=== PATIENT | male | born 1940 | race Caucasian/White ===

== ENCOUNTER 2017-06-21 17:20 | Inpatient (IN) | payer OTHER, MEDICARE ==
[~2017-06-21] VITALS: Ht 182.9 cm; Wt 84.6 kg
[~2017-06-21 17:20] MED LIST: ARIC5TAB PO; CARB25TA PO; CELE200 PO; EYEDRO EACH EYE; LORT5TAB PO; MEMA10 PO; SINE10100 PO
[2017-06-21] MEDS ORDERED: SODIUM CHLORIDE 0.9% FLUSH 5 ML FLUSH IV FLUSH PRN (17:45)
--- NOTE | 2017-06-21 17:47 | RADRPT ---
EXAM DATE/TIME: 06/21/2017 17:28 [facility] COMPARISON: No previous studies available for comparison. INDICATIONS : Syncope MEDICAL HISTORY : None. SURGICAL HISTORY : None. ENCOUNTER: Initial ACUITY: 1 day PAIN SCORE: 0/10 LOCATION: chest FINDINGS: Single AP view of the chest. Moderate-sized area of pulmonary parenchymal consolidation is seen in th e left mid to lower lung. No evidence of pleural effusion or pneumothorax. Cardiomediastinal silhouet te within normal limits. CONCLUSION: Moderate-sized area of left mid to lower lung consolidation. Recommend radiographic followup to brittani carlos. Masoud Rodriguez MD on June 21, 2017 at 17:43 Board Certified Radiologist. This report was verified electronically.
[2017-06-21 17:50] VITALS: O2SAT 98
--- NOTE | 2017-06-21 17:56 | PD ---
HPI Chief Complaint: altered mental status Time Seen by Provider: 17:32 Travel History International Travel<30 days: No Contact w/Intl Traveler<30days: No Traveled to known affect area: No History of Present Illness HPI 77-year-old male with history of dementia and Parkinson's disorder, presents to the ER today sent in by family because he has been more weak, disoriented, and having frequent recent falls according to family. They're having a hard time taking care of him at home. He currently denies any injuries. He denies any fevers, vomiting, or back pains. Modifying Factors: None Associated Signs & Symptoms: General weakness, disorientation, frequent falls Risk Factors: Elderly, dementia PFSH Past Medical History Parkinson's Disease: Yes Past Surgical History Appendectomy: Yes Tonsillectomy: Yes Social History Alcohol Use: Yes (SOCIAL) Tobacco Use: No Substance Use: No Allergies-Medications (Allergen,Severity, Reaction): Coded Allergies: Penicillin (Verified Allergy, Severe, Hives, 06/21/17) Reported Meds & Prescriptions Reported Meds & Active Scripts Active Reported Carbidopa-Levodopa 10-100 Mg Tab 1 Tab PO Q6HR Carbidopa-Levodopa 25-100 Mg Tab 1 Tab PO Q6HR Celecoxib 200 Mg Cap 200 Mg PO DAILY Memantine 10 Mg Tab 10 Mg PO BID Citalopram (Citalopram Hydrobromide) 20 Mg Tab 20 Mg PO DAILY Donepezil 10 Mg Tab 10 Mg PO HS Review of Systems ROS Limitations: Altered Mental Status Physical Exam Narrative GENERAL: Well-developed elderly white male patient currently in no acute distress. Awake, alert, not oriented. SKIN: Focused skin assessment warm/dry. HEAD: Atraumatic. Normocephalic. EYES: Pupils equal and round. No scleral icterus. No injection or drainage. ENT: No nasal bleeding or discharge. Mucous membranes pink and moist. NECK: Trachea midline. No JVD. CARDIOVASCULAR: Regular rate and rhythm. No murmur appreciated. RESPIRATORY: No accessory muscle use. Clear to auscultation. Breath sounds equal bilaterally. GASTROINTESTINAL: Abdomen soft, non-tender, nondistended. Hepatic and splenic margins not palpable. Pelvis: Stable and nontender to palpation. BACK: No CVA tenderness. No rash. No point tenderness on palpation of the spine. MUSCULOSKELETAL: No obvious deformities. No clubbing. No cyanosis. No edema. NEUROLOGICAL: Awake and alert. No obvious cranial nerve deficits. Motor grossly within normal limits. Normal speech. PSYCHIATRIC: Appropriate mood and affect; insight and judgment normal. Data Data Last Documented VS Vital Signs Date Time Temp Pulse Resp B/P Pulse Ox O2 Delivery O2 Flow Rate FiO2 06/21/17 18:16 98.6 78 19 150/95 98 06/21/17 17:50 Room Air Orders Electrocardiogram (06/21/17 17:32) Ammonia (06/21/17 17:32) Complete Blood Count With Diff (06/21/17 17:32) Comprehensive Metabolic Panel (06/21/17 17:32) Prothrombin Time / Inr (Pt) (06/21/17:32) Act Partial Throm Time (Ptt) (06/21/17 17:32) Troponin I (06/21/17 17:32) Thyroid Stimulating Hormone (06/21/17 17:32) Urinalysis - C+S If Indicated (06/21/17 17:32) Lactic Acid Sepsis Protocol (06/21/17 17:32) Blood Culture (06/21/17 17:32) Chest, Single Ap (06/21/17 17:32) Ct Brain W/O Iv Contrast(Rout) (06/21/17 17:32) Blood Glucose (06/21/17 17:32) Ecg Monitoring (06/21/17 17:32) Iv Access Insert/Monitor (06/21/17 17:32) Cath For Specimen (06/21/17 17:32) Oximetry (06/21/17 17:32) Sodium Chloride 0.9% Flush (Ns Flush) (06/21/17 17:45) Ceftriaxone Inj (Rocephin Inj) (06/21/17 18:47) Azithromycin Inj (Zithromax Inj) (06/21/17 18:47) Urine Culture (06/21/17 18:40) Labs Laboratory Tests Test 06/21/17 06/21/17 17:50 18:40 White Blood Count 9.6 TH/MM3 Red Blood Count 5.05 MIL/MM3 Hemoglobin 15.3 GM/DL Hematocrit 45.5 % Mean Corpuscular Volume 90.0 FL Mean Corpuscular Hemoglobin 30.2 PG Mean Corpuscular Hemoglobin 33.5 % Concent Red Cell Distribution Width 13.9 % Platelet Count 146 TH/MM3 Mean Platelet Volume 8.2 FL Neutrophils (%) (Auto) 77.5 % Lymphocytes (%) (Auto) 11.0 % Monocytes (%) (Auto) 10.1 % Eosinophils (%) (Auto) 0.8 % Basophils (%) (Auto) 0.6 % Neutrophils # (Auto) 7.4 TH/MM3 Lymphocytes # (Auto) 1.1 TH/MM3 Monocytes # (Auto) 1.0 TH/MM3 Eosinophils # (Auto) 0.1 TH/MM3 Basophils # (Auto) 0.1 TH/MM3 CBC Comment DIFF FINAL Differential Comment Prothrombin Time 11.3 SEC Prothromb Time International 1.0 RATIO Ratio Activated Partial 33.4 SEC Thromboplast Time Sodium Level 138 MEQ/L Chloride Level 84 MEQ/L Carbon Dioxide Level 18.0 MEQ/L Anion Gap 36 MEQ/L Blood Urea Nitrogen 15 MG/DL Creatinine 0.75 MG/DL Estimat Glomerular Filtration 101 ML/MIN Rate Random Glucose 97 MG/DL Lactic Acid Level 1.7 mmol/L Aspartate Amino Transf 16 U/L (AST/SGOT) Ammonia LESS THAN 10 MCMOL/L Albumin 3.1 GM/DL Urine Color DARK-BROWN Urine Turbidity CLOUDY Urine pH 6.0 Urine Specific [place] 1.031 Urine Protein 100 mg/dL Urine Glucose (UA) NEG mg/dL Urine Ketones 40 mg/dL Urine Occult Blood MOD Urine Nitrite NEG Urine Bilirubin NEG Urine Urobilinogen 2.0 MG/DL Urine Leukocyte Esterase TRACE Urine RBC /hpf Urine WBC 18 /hpf Urine Amorphous Sediment RARE Urine Bacteria OCC /hpf Urine Mucus MANY /lpf Microscopic Urinalysis Comment CATH-CULTURE IND MDM Medical Decision Making Medical Screen Exam Complete: Yes Emergency Medical Condition: Yes Medical Record Reviewed: Yes Interpretation(s) EKG shows normal sinus rhythm at a rate of 77 bpm with no signs of acute ST-T elevations or depressions. Last [address] 06/21/171731 Signed Impressions: Service Date/Time: Wednesday, June 21, 2017 18:11 - CONCLUSION: No acute intracranial findings. Masoud Rodriguez MD Chest X-Ray 06/21/171731 Signed Impressions: Service Date/Time: Wednesday, June 21, 2017 17:28 - CONCLUSION: Moderate- sized area of left mid to lower lung consolidation. Recommend radiographic followup to resolution. Masoud Rodriguez MD Differential Diagnosis Altered mental status, weakness, fallsacute intracranial injuries versus worsening dementia versus metabolic issues versus dehydration versus sepsis Narrative Course CAT scan of the brain did not show any signs of acute processes. Chest x-ray does show left-sided consolidation questionable for underlying pneumonia. IV antibiotics were initiated in the ER. Lab work also shows significant UTI. At this point, case was discussed with Dr. Garland for admission. Diagnosis Primary Impression: Altered mental status Additional Impression: Pneumonia Admitting Information Admitting Physician Requests: Admit Josiah Corbin MD Jun 21, 2017 17:56
[2017-06-21 18:16] VITALS: BP 150/95; PULSE 78; RESP 19; TEMP 98.6; O2SAT 98
[2017-06-21 18:44] LABS: AUTOMATED NEUTROPHIL # 7.4 TH/MM3 (1.8-7.7); BASOPHIL # 0.1 TH/MM3 (0-0.2); BASOPHIL % 0.6 % (0.0-2.0); EOSINOPHIL # 0.1 TH/MM3 (0-0.4); EOSINOPHIL % 0.8 % (0.0-4.0); HEMATOCRIT 45.5 % (39.0-51.0); HEMO FLAGS DIFF FINAL; LYMPHOCYTE # 1.1 TH/MM3 (1.0-4.8); MEAN CORPUSCULAR HEMOGLOBIN 30.2 PG (27.0-34.0); MEAN CORPUSCULAR HGB CONC 33.5 % (32.0-36.0); MONO % 10.1 % (0.0-8.0); NEUT % 77.5 % (16.0-70.0); PLATELET COUNT 146 TH/MM3 (150-450); RED BLOOD COUNT 5.05 MIL/MM3 (4.50-5.90); RED CELL DISTRIBUTION WIDTH 13.9 % (11.6-17.2); WHITE BLOOD COUNT 9.6 TH/MM3 (4.0-11.0)
--- NOTE | 2017-06-21 18:46 | RADRPT ---
EXAM DATE/TIME: 06/21/2017 18:11 [facility] COMPARISON: No previous studies available for comparison. INDICATIONS : Altered mental status. RADIATION DOSE: 34.54 CTDIvol (mGy) MEDICAL HISTORY : Parkinson's. SURGICAL HISTORY : None. ENCOUNTER: Initial ACUITY: 1 day PAIN SCALE: Non-responsive LOCATION: cranial TECHNIQUE: Multiple contiguous axial images were obtained of the head. Using automated exposure control and adj ustment of the mA and/or kV according to patient size, radiation dose was kept as low as reasonably a chievable to obtain optimal diagnostic quality images. DICOM format image data is available electro nically for review and comparison. FINDINGS: CEREBRUM: Mild symmetric bilateral frontal lobe atrophy. The ventricles are normal for age. No evidence of mid line shift, mass lesion, hemorrhage or acute infarction. No extra-axial fluid collections are seen. POSTERIOR FOSSA: The cerebellum and brainstem are intact. The 4th ventricle is midline. The cerebellopontine angle i s unremarkable. EXTRACRANIAL: The visualized portion of the orbits is intact. SKULL: The calvaria is intact. No evidence of skull fracture. CONCLUSION: No acute intracranial findings. Masoud Rodriguez MD on June 21, 2017 at 18:43 Board Certified Radiologist. This report was verified electronically.
[2017-06-21] MEDS ORDERED: cefTRIAXone INJ 2,000 MG in SODIUM CHLORIDE 0.9% INJ 100 ML IV STA (18:47)
[2017-06-21] MEDS ORDERED: AZITHROMYCIN INJ 500 MG in SODIUM CHLOR 0.9% 250 ML INJ 250 ML IV STA (18:47)
[2017-06-21] MEDS ORDERED: MEMA1TAB2 PO (18:50)
[2017-06-21] MEDS ORDERED: CARB25TA9 PO (18:50)
[2017-06-21] MEDS ORDERED: CARB10TA2 PO (18:50)
[2017-06-21] MEDS ORDERED: CELE1CAP8 PO (18:50)
[2017-06-21] MEDS ORDERED: CITA20TA4 PO (18:50)
[2017-06-21] MEDS ORDERED: DONE10TA7 PO (18:50)
[2017-06-21 18:59] LABS: APTT (PATIENT) 33.4 SEC (24.3-30.1); PROTHROMBIN TIME - PATIENT 11.3 SEC (9.8-11.6)
[2017-06-21 19:14] LABS: AST (GOT) 16 U/L (15-37); BLOOD UREA NITROGEN 15 MG/DL (7-18); GLOMERULAR FILTRATION RATE 101 ML/MIN (>89); SODIUM (NA) 138 MEQ/L (136-145)
[2017-06-21 19:27] LABS: BACTERIA, URINE OCC /hpf; BLOOD, URINE MOD (NEG); GLUCOSE,URINE NEG (NEG); KETONE, URINE 40 mg/dL (NEG); MUCUS URINE MANY /lpf (OCC); NITRITE,URINE NEG (NEG)
[2017-06-21 19:30] LABS: URINE COLOR DARK-BROWN (YELLW/STRAW)
[2017-06-21 19:31] LABS: COMMENT (UR) CATH-CULTURE IND; CULTURE IF INDICATED CATH CULTURE IND
--- NOTE | 2017-06-21 19:41 | HHI.HP ---
[facility] Camryn Sheppard MD Admission Diagnosis sepsis/pneumonia/UTI/altered mental status Diagnoses: (1) Encephalopathy Diagnosis: Principal (2) UTI (urinary tract infection) Diagnosis: Principal (3) PNA (pneumonia) Diagnosis: Principal (4) Recurrent falls Diagnosis: Principal (5) Dementia Diagnosis: Principal (6) Thrombocytopenia Diagnosis: Principal (7) HTN (hypertension) Diagnosis: Principal Travel History International Travel<30 Days: No Contact w/Intl Traveler <30 Da: No Traveled to Known Affected Are: No History of Present Illness This is a 77-year-old male with a PMH of Parkinson's Dementia was brought to the ER by family secondary to recurrent falls and worsening confusion x1-2 wks. Lives at home w/ who is unable to care for patient in his current condition. No reported fever, chills, nausea/vomiting or diarrhea. On arrival , BP 150/95, HR 78, O2 sat 98% on RA, Afebrile. CBC unremarkable except for platelets 146, previously 181 on 10/24/08. Chemistry essentially unremarkable. Lactic Acid normal. Troponin negative. Ammonia negative. INR 1.0. UA positive for UTI. CXR with moderate sized area of left mid to lower lung consolidation. CT Head with no acute findings. S/p Blood/Urine Culture in ER, Rocephin/Zithro. Review of Systems Except as stated in HPI: all other systems reviewed are Neg ROS: 14 point review of systems otherwise negative. Past Family Social History Past Medical History PMH: Parkinson's Dementia Past Surgical History PAST SURGICAL HISTORY: Appendectomy, Tonsillectomy Allergies: Coded Allergies: Penicillin (Verified Allergy, Severe, Hives, 06/21/17) Family History PAST FAMILY HISTORY: Reviewed. No h/o DM or CAD Social History PAST SOCIAL HISTORY: Occasional alcohol. Negative for tobacco or drugs. Physical Exam Vital Signs Vital Signs Date Time Temp Pulse Resp B/P Pulse Ox O2 Delivery O2 Flow Rate FiO2 06/21/17 18:16 98.6 78 19 150/95 98 06/21/17 17:50 98 Room Air Physical Exam PE: GENERAL: Elderly white male in no acute distress. HEENT: PERRLA, EOMI. No scleral icterus or conjunctival pallor. No lid lag or facial droop. CARDIOVASCULAR: Regular rate and rhythm. No obvious murmurs to auscultation. No chest tenderness to palpation. RESPIRATORY: No obvious rhonchi or wheezing. Clear to auscultation. Breath sounds equal bilaterally. GASTROINTESTINAL: Abdomen soft, non-tender, nondistended. BS normal. MUSCULOSKELETAL: Extremities without clubbing, cyanosis, or edema. No obvious deformities. NEUROLOGICAL: Awake, alert, confused. No focal neurologic deficits. Moving both upper and lower extremities spontaneously. Laboratory Laboratory Tests Test 06/21/17 06/21/17 17:50 18:40 White Blood Count 9.6 Red Blood Count 5.05 Hemoglobin 15.3 Hematocrit 45.5 Mean Corpuscular Volume 90.0 Mean Corpuscular Hemoglobin 30.2 Mean Corpuscular Hemoglobin 33.5 Concent Red Cell Distribution Width 13.9 Platelet Count 146 Mean Platelet Volume 8.2 Neutrophils (%) (Auto) 77.5 Lymphocytes (%) (Auto) 11.0 Monocytes (%) (Auto) 10.1 Eosinophils (%) (Auto) 0.8 Basophils (%) (Auto) 0.6 Neutrophils # (Auto) 7.4 Lymphocytes # (Auto) 1.1 Monocytes # (Auto) 1.0 Eosinophils # (Auto) 0.1 Basophils # (Auto) 0.1 CBC Comment DIFF FINAL Differential Comment Prothrombin Time 11.3 Prothromb Time International 1.0 Ratio Activated Partial 33.4 Thromboplast Time Sodium Level 138 Chloride Level 84 Carbon Dioxide Level 18.0 Anion Gap 36 Blood Urea Nitrogen 15 Creatinine 0.75 Estimat Glomerular Filtration 101 Rate Random Glucose 97 Lactic Acid Level 1.7 Aspartate Amino Transf 16 (AST/SGOT) Ammonia LESS THAN 10 Albumin 3.1 Urine Color DARK-BROWN Urine Turbidity CLOUDY Urine pH 6.0 Urine Specific [place] 1.031 Urine Protein 100 Urine Glucose (UA) NEG Urine Ketones 40 Urine Occult Blood MOD Urine Nitrite NEG Urine Bilirubin NEG Urine Urobilinogen 2.0 Urine Leukocyte Esterase TRACE Urine RBC Urine WBC 18 Urine Amorphous Sediment RARE Urine Bacteria OCC Urine Mucus MANY Microscopic Urinalysis Comment CATH-CULTURE IND Date/Time Procedure Status Source Growth 06/21/17 18:40 Urine Culture Received Urine Catheterized Urine Pending 06/21/17 17:55 Aerobic Blood Culture Received Blood Peripheral Pending 06/21/17 17:55 Anaerobic Blood Culture Received Blood Peripheral Pending Result Diagram: 06/21/17174906/21/171749 Assessment and Plan Problem List: (1) Encephalopathy ICD Code: G93.40 Status: Acute (2) UTI (urinary tract infection) ICD Code: N39.0 Status: Acute (3) PNA (pneumonia) ICD Code: J18.9 Status: Acute (4) Recurrent falls ICD Code: R29.6 Status: Acute (5) Dementia ICD Code: F03.90 Status: Acute (6) Thrombocytopenia ICD Code: D69.6 Status: Acute (7) HTN (hypertension) ICD Code: I10 Status: Acute Assessment and Plan A/P: 1. Encephalopathy: likely secondary to underlying Dementia compounded by acute UTI/PNA. Family reports worsening confusion. CT Head w/ no acute findings, images reviewed by me. 2. UTI: U/a w/ trace LE, hematuria, bacteriuria. S/p Rocephin/Zithro in ER for PNA, will continue w/ IV abx, IVF for hydration. 3. PNA: CXR w/ left mid and left lower lung infiltrate. Afebrile, WBC normal. S/p Rocephin/Zithro, Blood Cultures in ER. Will follow cultures, continue IV Abx, DuoNeb prn if needed. 4. Recurrent Falls: Likely multifactorial-Dementia, Physical Deconditioning and acute infection. PT for eval/tx. 5. Dementia: Resume home Sinemet and Aricept. 6. Thrombocytopenia: Platelets 146, previously 181 on 10/24/08, no active bleeding, will monitor, repeat labs in am. 7. DVT Prophylaxis: SCD/Teds. 8. Social work for d/c planning as needed. 9. Case discussed w/ ER physician at length. Physician Certification 2 Midnight Certification Type: Admission for Inpatient Services Order for Inpatient Services The services are ordered in accordance with Medicare regulations or non- Medicare payer requirements, as applicable. In the case of services not specified as inpatient-only, they are appropriately provided as inpatient services in accordance with the 2-midnight benchmark. Estimated LOS (days): 2 days is the estimated time the patient will need to remain in the hospital, assuming treatment plan goals are met and no additional complications. Post-Hospital Plan: Not yet determined Yisel Garland MD Jun 21, 2017 19:41
[2017-06-21] MEDS ORDERED: RESP: ALBUTEROL 2.5 MG/IPRATROPIUM 0.5 MG NEB (PRN) NEB (19:45)
[2017-06-21] MEDS ORDERED: ACETAMINOPHEN 325 MG TAB PO PRN (19:45)
[2017-06-21] MEDS ORDERED: LACTULOSE SYRUP 20 GM/30 ML CUP PO PRN (19:45)
[2017-06-21] MEDS ORDERED: MAGNESIUM HYDROXIDE SUSP 30 ML CUP PO PRN (19:45)
[2017-06-21] MEDS ORDERED: SENNOSIDES 8.6 MG TAB PO PRN (19:45)
[2017-06-21] MEDS ORDERED: SODIUM CHLORIDE 0.9% FLUSH 10 ML FLUSH IV FLUSH PRN (19:45)
[2017-06-21] MEDS ORDERED: BISACODYL 10 MG SUPP RECTAL PRN (19:45)
[2017-06-21] MEDS ORDERED: ONDANSETRON HCL 4 MG/2 ML VIAL IVP PRN (19:45)
[2017-06-21 19:47] LABS: ALKALINE PHOSPHATASE 67 U/L (45-117); ALT (GPT) LESS THAN 6 U/L (12-78)
[2017-06-21 19:48] LABS: TOTAL BILIRUBIN ADULT 2.1 MG/DL (0.2-1.0)
[2017-06-21 19:50] LABS: CHLORIDE 102 MEQ/L (98-107)
[2017-06-21 19:51] LABS: ANION GAP 12 MEQ/L (5-15); BICARBONATE 24.5 MEQ/L (21.0-32.0)
[2017-06-21] MEDS: SODIUM CHLOR 0.9% 1000 ML INJ 1,000 ML IV SCH (20:20)
[2017-06-21 20:23] VITALS: BP 148/88; PULSE 88; RESP 16; TEMP 98.8; O2SAT 99
[2017-06-21 21:00] VITALS: BP 147/62; PULSE 80; RESP 20; TEMP 97; O2SAT 97
[2017-06-21] MEDS: BUDESONIDE-FORMOTEROL 160/4.5 MCG INHALER INH SCH (21:00)
[2017-06-21] MEDS: SODIUM CHLORIDE 0.9% FLUSH 10 ML FLUSH IV FLUSH SCH (21:00)
[2017-06-21] MEDS: guaiFENesin E.R. 600 MG TAB PO SCH (22:03)
[2017-06-21] MEDS: DONEPEZIL HCL 5 MG TAB PO SCH (22:03)
[2017-06-21] MEDS: DOCUSATE SODIUM 50 MG/SENNA 8.6 MG TAB PO SCH (22:03)
[2017-06-21] MEDS: MEMANTINE HCL 10 MG TAB PO SCH (22:03)
[2017-06-21] MEDS ORDERED: LORazepam 2 MG/ML VIAL IV PUSH ONE ×2 (23:45)
[2017-06-22] VITALS (9 sets, daily range): BP systolic 130–154; BP diastolic 65–98; PULSE 67–101; RESP 17–23; TEMP 97.4–98.6; O2SAT 93–98
[2017-06-22] MEDS: CARBIDOPA/LEVODOPA 25 MG/100 MG TAB PO SCH ×4 (00:10→17:16)
[2017-06-22] MEDS: CARBIDOPA/LEVODOPA 10 MG/100 MG TAB PO SCH ×4 (00:10→17:16)
[2017-06-22] MEDS: SODIUM CHLOR 0.9% 1000 ML INJ 1,000 ML IV SCH ×2 (06:18→16:28)
[2017-06-22] MEDS: BUDESONIDE-FORMOTEROL 160/4.5 MCG INHALER INH SCH ×2 (09:00→20:47)
[2017-06-22] MEDS: SODIUM CHLORIDE 0.9% FLUSH 10 ML FLUSH IV FLUSH SCH ×2 (09:00→20:46)
[2017-06-22] MEDS: guaiFENesin E.R. 600 MG TAB PO SCH ×2 (09:19→20:46)
[2017-06-22] MEDS: CITALOPRAM HYDROBROMIDE 20 MG TAB PO SCH (09:19)
[2017-06-22] MEDS: DOCUSATE SODIUM 50 MG/SENNA 8.6 MG TAB PO SCH ×2 (09:19→20:46)
[2017-06-22] MEDS: MEMANTINE HCL 10 MG TAB PO SCH ×2 (09:19→20:46)
--- NOTE | 2017-06-22 09:32 | HHI.PR ---
Subjective Remarks in no acute distress. however confused and at times agitated. no fever. d/w the RN. Objective Vitals Vital Signs Date Time Temp Pulse Resp B/P Pulse Ox O2 Delivery O2 Flow Rate FiO2 06/22/17 04:30 97.7 69 22 139/67 95 06/22/17 02:49 82 06/22/17 01:30 98.0 71 23 135/65 94 06/22/17 01:30 98.0 71 23 135/65 94 06/21/17 21:00 97.0 80 20 147/62 97 06/21/17 20:23 98.8 88 16 148/88 99 Room Air 06/21/17 18:16 98.6 78 19 150/95 98 06/21/17 17:50 98 Room Air I/O 06/21/17 06/21/17 06/21/17 06/22/17 06/22/17 06/22/17 07:00 15:00 23:00 07:00 15:00 23:00 Intake Total 0 ml 0 ml 1200 ml Output Total 100 ml 100 ml Balance -100 ml -100 ml 1200 ml Intake Oral 0 ml 0 ml IV Total 1200 ml Output Urine Total 100 ml 100 ml # Voids 1 # Bowel Movements 0 0 Result Diagram: 06/21/17 1750 06/21/171749 Imaging Last Impressions Head CT 06/21/171731 Signed Impressions: Service Date/Time: Wednesday, June 21, 2017 18:11 - CONCLUSION: No acute intracranial findings. Masoud Rodriguez MD Chest X-Ray 06/21/171731 Signed Impressions: Service Date/Time: Wednesday, June 21, 2017 17:28 - CONCLUSION: Moderate- sized area of left mid to lower lung consolidation. Recommend radiographic followup to resolution. Masoud Rodriguez MD Objective Remarks GENERAL: elderly male in no distress- however confused. CARDIOVASCULAR: Regular rate and regular rhythm without murmurs, gallops, or rubs. RESPIRATORY: Clear to auscultation. Breath sounds equal bilaterally. No wheezes , rales, or rhonchi. GASTROINTESTINAL: Abdomen soft, non-tender, nondistended. Normal, active bowel sounds MUSCULOSKELETAL: Extremities without clubbing, cyanosis, or edema. NEURO: awake but not oriented to time or place. A/P Assessment and Plan A/P 1. Encephalopathy: likely secondary to underlying Dementia compounded by acute UTI/PNA. Family reports worsening confusion. CT Head w/ no acute findings- 2. UTI: U/a w/ trace LE, hematuria, bacteriuria. will continue w/ IV abx, IVF for hydration. 3. PNA: CXR w/ left mid and left lower lung infiltrate. Afebrile, WBC normal. Will follow cultures, continue IV Abx, DuoNeb prn if needed. will repeat CXR in one-two days. 4. Recurrent Falls: Likely multifactorial-Dementia, Physical Deconditioning and acute infection. PT for eval/tx. 5. Dementia: Resumed home Sinemet and Aricept. 6. Thrombocytopenia: no active bleeding, will monitor. 7. DVT Prophylaxis: SCD/Teds. Tashia Lara MD Jun 22, 2017 09:32
[2017-06-22] MEDS ORDERED: HALOPERIDOL LACTATE 5 MG/ML AMP IM PRN (09:45)
--- NOTE | 2017-06-22 16:46 | EKG ---
Date Performed: 06/21/2017 Time Performed: 18:06:30 PTAGE: 77 years EKG: Sinus rhythm MODERATE INTRAVENTRICULAR CONDUCTION DELAY NONSPECIFIC ST & T-WAVE ABNORMALITY ABNORMAL ECG PREVIOUS TRACING : 06/15/2002 11.53 Since previous tracing, no significant change noted DOCTOR: Renate Blevins Interpretating Date/Time 06/22/2017 16:44:15
[2017-06-22] MEDS: DONEPEZIL HCL 5 MG TAB PO SCH (20:46)
[2017-06-22] MEDS: QUEtiapine FUMARATE 25 MG TAB PO SCH (20:46)
[2017-06-22] MEDS: cefTRIAXone INJ 1,000 MG in SODIUM CHLORIDE 0.9% INJ 100 ML IV SCH (20:47)
[2017-06-22] MEDS: AZITHROMYCIN INJ 500 MG in SODIUM CHLOR 0.9% 250 ML INJ 250 ML IV SCH (21:45)
[2017-06-23] VITALS: BP 145/81; PULSE 110; RESP 22; TEMP 97.9; O2SAT 94
[2017-06-23] MEDS: CARBIDOPA/LEVODOPA 25 MG/100 MG TAB PO SCH ×5 (00:21→23:43)
[2017-06-23] MEDS: CARBIDOPA/LEVODOPA 10 MG/100 MG TAB PO SCH ×5 (00:21→23:43)
[2017-06-23] MEDS: SODIUM CHLOR 0.9% 1000 ML INJ 1,000 ML IV SCH ×3 (01:40→22:00)
[2017-06-23 05:45] VITALS: BP 150/76; PULSE 115; RESP 23; TEMP 98.9; O2SAT 93
[2017-06-23 08:17] VITALS: BP 101/62; PULSE 75; RESP 18; TEMP 97.6; O2SAT 95
[2017-06-23] MEDS: SODIUM CHLORIDE 0.9% FLUSH 10 ML FLUSH IV FLUSH SCH ×2 (09:00→21:00)
[2017-06-23] MEDS: guaiFENesin E.R. 600 MG TAB PO SCH ×2 (09:27→21:18)
[2017-06-23] MEDS: CITALOPRAM HYDROBROMIDE 20 MG TAB PO SCH (09:27)
[2017-06-23] MEDS: MEMANTINE HCL 10 MG TAB PO SCH ×2 (09:28→21:18)
[2017-06-23] MEDS: DOCUSATE SODIUM 50 MG/SENNA 8.6 MG TAB PO SCH ×2 (09:28→21:18)
[2017-06-23] MEDS: BUDESONIDE-FORMOTEROL 160/4.5 MCG INHALER INH SCH ×2 (09:28→21:00)
--- NOTE | 2017-06-23 10:16 | HHI.PR ---
Subjective Remarks in no acute distress. has occasional cough. no fever. awake but confused. Objective Vitals Vital Signs Date Time Temp Pulse Resp B/P Pulse Ox O2 Delivery O2 Flow Rate FiO2 06/23/17 08:17 97.6 75 18 101/62 95 06/23/17 05:45 98.9 115 23 150/76 93 06/23/17 00:00 97.9 110 22 145/81 94 06/22/17 21:55 75 06/22/17 21:00 97.7 101 21 140/70 94 06/22/17 16:00 97.9 82 17 154/72 93 06/22/17 13:46 67 06/22/17 12:00 98.6 76 17 130/70 98 I/O 06/22/17 06/22/17 06/22/17 06/23/17 06/23/17 06/23/17 07:00 15:00 23:00 07:00 15:00 23:00 Intake Total 0 ml 1560 ml 0 ml 1200 ml Output Total 100 ml Balance -100 ml 1560 ml 0 ml 1200 ml Intake Oral 0 ml 360 ml 0 ml 0 ml IV Total 1200 ml 1200 ml Output Urine Total 100 ml # Voids 1 3 1 2 # Bowel Movements 0 1 0 2 Result Diagram: 06/21/17 1750 06/21/17 175 Imaging Last Impressions Head CT 06/21/171731 Signed Impressions: Service Date/Time: Wednesday, June 21, 2017 18:11 - CONCLUSION: No acute intracranial findings. Masoud Rodriguez MD Chest X-Ray 06/21/171731 Signed Impressions: Service Date/Time: Wednesday, June 21, 2017 17:28 - CONCLUSION: Moderate- sized area of left mid to lower lung consolidation. Recommend radiographic followup to resolution. Masoud Rodriguez MD Objective Remarks GENERAL: elderly male in no distress- however confused. CARDIOVASCULAR: Regular rate and regular rhythm without murmurs, gallops, or rubs. RESPIRATORY: Clear to auscultation. Breath sounds equal bilaterally. No wheezes , rales, or rhonchi. GASTROINTESTINAL: Abdomen soft, non-tender, nondistended. Normal, active bowel sounds MUSCULOSKELETAL: Extremities without clubbing, cyanosis, or edema. NEURO: awake but not oriented to time or place. Medications and IVs Current Medications IV Flush 2 ml 2 ml UNSCH PRN IV FLUSH FLUSH AFTER USING IV ACCESS; Start at 17:45 Ceftriaxone Sodium 2000 mg/ Sodium Chloride 100 ml @ 200 mls/hr ONCE STAT IV Last administered on 06/21/17 19:14; Start 06/21/17 at 18:47; Stop 06/21/17 at 19:16; Status DC Azithromycin 500 mg/Sodium Chloride 250 ml @ 250 mls/hr ONCE STAT IV Last administered on 06/21/17 20:20; Start 06/21/17 at 18:47; Stop 06/21/17 at 19:50 ; Status DC Ceftriaxone Sodium 1000 mg/ Sodium Chloride 100 ml @ 200 mls/hr Q24H IV Last administered on 06/22/17 20:47; Start 06/22/17 at 20:00 Azithromycin/ Sodium Chloride (Zithromax Inj/ NS 250 ml Inj) 250 ml @ 250 mls/ hr Q24H IV Last administered on 06/22/17 21:45; Start 06/22/17 at 21:00 Albuterol/ Ipratropium (Duoneb Neb) 1 ampule Q4HR NEB PRN NEB SOB/WHEEZING; Start 06/21/17 at 19:45 Budesonide/ Formoterol Fumarate (Symbicort 160-4.5 Inh) 2 puff Q12HR INH Last administered on 06/23/17 09:28; Start 06/21/17 at 21:00 Guaifenesin 600 mg 600 mg BID PO Last administered on 06/23/17 09:27; Start at 21:00 Sodium Chloride (NS 1000 ml Inj) 1,000 ml @ 100 mls/hr Q10H IV Last administered on 06/23/17 01:40; Start 06/21/17 at 20:00 Sodium Chloride (NS Flush) 2 ml UNSCH PRN IV FLUSH FLUSH AFTER USING IV ACCESS ; Start 06/21/17 at 19:45; Status UNV Sodium Chloride (NS Flush) 2 ml BID IV FLUSH ; Start 06/21/17 at 21:00 Ondansetron HCl (Zofran Inj) 4 mg Q6H PRN IVP NAUSEA OR VOMITING; Start at 19:45 Acetaminophen (Tylenol) 650 mg Q6H PRN PO FEVER/PAIN SCALE 1 TO 2; Start at 19:45 Senna/Docusate Sodium (Cindy-Colace) 1 tab BID PO Last administered on 09:28; Start 06/21/17 at 21:00 Magnesium Hydroxide (Milk Of Magnesia Liq) 30 ml Q12H PRN PO MILD - MODERATE CONSTIPATION; Start 06/21/17 at 19:45 Sennosides (Senokot) 17.2 mg Q12H PRN PO MODERATE - SEVERE CONSTIPATION; Start 06/21/17 at 19:45 Bisacodyl (Dulcolax Supp) 10 mg DAILY PRN RECTAL SEVERE CONSITIPATION; Start at 19:45 Lactulose (Lactulose Liq) 30 ml DAILY PRN PO SEVERE CONSITIPATION; Start at 19:45 Carbidopa/Levodopa (Sinemet 10-100 Mg) 1 tab Q6HR PO Last administered on 05:22; Start 06/22/17 at 00:00 Carbidopa/Levodopa (Sinemet 25-100 Mg) 1 tab Q6HR PO Last administered on 05:22; Start 06/22/17 at 00:00 Donepezil HCl (Aricept) 10 mg HS PO Last administered on 06/22/17 20:46; Start 06/21/17 at 22:00 Memantine (Namenda) 10 mg BID PO Last administered on 06/23/17 09:28; Start at 21:00 Citalopram Hydrobromide (CeleXA) 20 mg DAILY PO Last administered on 06/23/17 09:27; Start 06/22/17 at 09:00 Lorazepam (Ativan Inj) 1 mg ONCE ONCE IV PUSH ; Start 06/21/17 at 23:45; Stop 06/21/17 at 23:45; Status DC Lorazepam (Ativan Inj) 0.5 mg ONCE ONCE IV PUSH Last administered on 00:10; Start 06/21/17 at 23:45; Stop 06/21/17 at 23:46; Status DC Haloperidol Lactate (Haldol Inj) 2 mg Q6H PRN IM AGITATION AND/OR HALLUCINATION ; Start 06/22/17 at 09:45; Stop 06/22/17 at 12:12; Status DC Quetiapine Fumarate (SEROquel) 25 mg HS PO Last administered on 06/22/17t 20:46 ; Start 06/22/17 at 21:00 A/P Assessment and Plan A/P 1. Encephalopathy: likely secondary to underlying Dementia compounded by acute UTI/PNA. Family reports worsening confusion. CT Head w/ no acute findings- 2. possible UTI: U/a w/ trace LE, hematuria, bacteriuria. will continue w/ IV abx, IVF for hydration. 3. PNA: CXR w/ left mid and left lower lung infiltrate. Afebrile, WBC normal. Will follow cultures, continue IV Abx, DuoNeb prn if needed. repeat CXR tomorrow. 4. Recurrent Falls: Likely multifactorial-Dementia, Physical Deconditioning and acute infection. PT for eval/tx. 5. Dementia: Resumed home Sinemet and Aricept. added Seroquel. 6. Thrombocytopenia: no active bleeding, will monitor. 7. DVT Prophylaxis: SCD/Teds. Discharge Planning previously d/w the and PT recommendations noted; case management for SNF. Tashia Lara MD Jun 23, 2017 10:16
[2017-06-23 12:04] VITALS: BP 129/55; PULSE 78; RESP 20; TEMP 97.9; O2SAT 96
[2017-06-23 12:41] LABS: BASOPHIL % 0.5 % (0.0-2.0); EOSINOPHIL # 0.1 TH/MM3 (0-0.4); EOSINOPHIL % 1.3 % (0.0-4.0); HEMO FLAGS DIFF FINAL; LYMPH % 12.3 % (9.0-44.0); LYMPHOCYTE # 0.9 TH/MM3 (1.0-4.8); MEAN CELL VOLUME 87.7 FL (80.0-100.0); MEAN CORPUSCULAR HEMOGLOBIN 29.8 PG (27.0-34.0); MONO % 14.6 % (0.0-8.0); NEUT % 71.3 % (16.0-70.0); PLATELET COUNT 125 TH/MM3 (150-450); RED BLOOD COUNT 4.68 MIL/MM3 (4.50-5.90); RED CELL DISTRIBUTION WIDTH 13.4 % (11.6-17.2); WHITE BLOOD COUNT 7.1 TH/MM3 (4.0-11.0)
[2017-06-23 12:52] LABS: ANION GAP 9 MEQ/L (5-15); AST (GOT) 23 U/L (15-37); BICARBONATE 22.7 MEQ/L (21.0-32.0); CHLORIDE 106 MEQ/L (98-107); GLOMERULAR FILTRATION RATE 147 ML/MIN (>89); POTASSIUM 4.1 MEQ/L (3.5-5.1); SODIUM (NA) 138 MEQ/L (136-145)
[2017-06-23 12:53] LABS: ALT (GPT) 6 U/L (12-78)
[2017-06-23 12:54] LABS: BLOOD UREA NITROGEN 12 MG/DL (7-18)
[2017-06-23 12:55] LABS: ALKALINE PHOSPHATASE 60 U/L (45-117); TOTAL BILIRUBIN ADULT 1.2 MG/DL (0.2-1.0)
[2017-06-23 15:54] VITALS: BP 122/55; PULSE 74; RESP 20; TEMP 98.1; O2SAT 96
[2017-06-23 20:00] VITALS: BP 138/65; PULSE 77; RESP 18; TEMP 97.8; O2SAT 95
[2017-06-23] MEDS: QUEtiapine FUMARATE 25 MG TAB PO SCH (21:18)
[2017-06-23] MEDS: DONEPEZIL HCL 5 MG TAB PO SCH (21:18)
[2017-06-23] MEDS: cefTRIAXone INJ 1,000 MG in SODIUM CHLORIDE 0.9% INJ 100 ML IV SCH (21:18)
[2017-06-23] MEDS: AZITHROMYCIN INJ 500 MG in SODIUM CHLOR 0.9% 250 ML INJ 250 ML IV SCH (22:31)
[2017-06-24] VITALS: BP 115/51; PULSE 77; RESP 18; TEMP 98.2; O2SAT 96
[2017-06-24 05:00] VITALS: BP 145/82; PULSE 73; RESP 18; TEMP 98.2; O2SAT 94
[2017-06-24] MEDS: CARBIDOPA/LEVODOPA 10 MG/100 MG TAB PO SCH ×3 (05:19→17:27)
[2017-06-24] MEDS: CARBIDOPA/LEVODOPA 25 MG/100 MG TAB PO SCH ×3 (05:19→17:27)
--- NOTE | 2017-06-24 07:03 | RADRPT ---
EXAM DATE/TIME: 06/24/2017 06:06 [facility] COMPARISON: CHEST SINGLE AP, June 21, 2017, 17:28. INDICATIONS : Pneumonia. MEDICAL HISTORY : Parkinson's disease. SURGICAL HISTORY : None. ENCOUNTER: Subsequent ACUITY: 3 days PAIN SCORE: Non-responsive. LOCATION: Bilateral chest FINDINGS: A single view of the chest demonstrates bilateral infiltrates left greater than right. The cardiomed iastinal contours are unremarkable. Osseous structures are intact. CONCLUSION: Worsening airspace disease throughout the left lower lobe. Venancio Morataya MD on June 24, 2017 at 7:01 Board Certified Radiologist. This report was verified electronically.
[2017-06-24] MEDS: SODIUM CHLOR 0.9% 1000 ML INJ 1,000 ML IV SCH (08:00)
[2017-06-24] MEDS: SODIUM CHLORIDE 0.9% FLUSH 10 ML FLUSH IV FLUSH SCH ×2 (08:04→21:50)
[2017-06-24] MEDS: DOCUSATE SODIUM 50 MG/SENNA 8.6 MG TAB PO SCH ×2 (08:04→21:48)
[2017-06-24] MEDS: BUDESONIDE-FORMOTEROL 160/4.5 MCG INHALER INH SCH (08:05)
[2017-06-24] MEDS: MEMANTINE HCL 10 MG TAB PO SCH ×2 (08:05→21:48)
[2017-06-24] MEDS: guaiFENesin E.R. 600 MG TAB PO SCH ×2 (08:05→21:48)
[2017-06-24] MEDS: CITALOPRAM HYDROBROMIDE 20 MG TAB PO SCH (08:07)
[2017-06-24 08:09] VITALS: BP 156/65; PULSE 75; RESP 20; TEMP 98.8; O2SAT 95
[2017-06-24 10:29] LABS: BASOPHIL # 0.1 TH/MM3 (0-0.2); BASOPHIL % 1.3 % (0.0-2.0); EOSINOPHIL # 0.2 TH/MM3 (0-0.4); EOSINOPHIL % 1.5 % (0.0-4.0); LYMPH % 12.3 % (9.0-44.0); LYMPHOCYTE # 1.4 TH/MM3 (1.0-4.8); MEAN CORPUSCULAR HEMOGLOBIN 29.8 PG (27.0-34.0); MEAN CORPUSCULAR HGB CONC 34.2 % (32.0-36.0); MONO % 15.6 % (0.0-8.0); NEUT % 69.3 % (16.0-70.0); PLATELET COUNT 150 TH/MM3 (150-450); RED BLOOD COUNT 4.72 MIL/MM3 (4.50-5.90); RED CELL DISTRIBUTION WIDTH 13.4 % (11.6-17.2); WHITE BLOOD COUNT 11.6 TH/MM3 (4.0-11.0)
[2017-06-24 10:57] LABS: HEMO FLAGS AUTO DIFF; PLATELET ESTIMATE SMEAR NORMAL (NORMAL); PLATELET MORPHOLOGY NORMAL (NORMAL)
[2017-06-24 10:58] LABS: SCAN/DIFF AUTO DIFF CONFIRMED
--- NOTE | 2017-06-24 11:34 | HHI.PR ---
Subjective Remarks f/u; pneumonia- not as responsive. no fever. CXR today noted. d/w the RN. Objective Vitals Vital Signs Date Time Temp Pulse Resp B/P Pulse Ox O2 Delivery O2 Flow Rate FiO2 06/24/17 08:09 98.8 75 20 156/65 95 06/24/17 05:00 98.2 73 18 145/82 94 06/24/17 00:00 98.2 77 18 115/51 96 06/23/17 20:00 97.8 77 18 138/65 95 06/23/17 15:54 98.1 74 20 122/55 96 06/23/17 12:04 97.9 78 20 129/55 96 I/O 06/23/17 06/23/17 06/23/17 06/24/17 06/24/17 06/24/17 07:00 15:00 23:00 07:00 15:00 23:00 Intake Total 1200 ml 600 ml 830 ml Balance 1200 ml 600 ml 830 ml Intake Oral 0 ml 600 ml 180 ml IV Total 1200 ml 650 ml # Voids 2 2 4 # Bowel Movements 2 3 2 Result Diagram: 06/24/17 0900 06/23/17 1122 Imaging Last Impressions Chest X-Ray 06/24/17 0600 Signed Impressions: Service Date/Time: Saturday, June 24, 2017 06:06 - CONCLUSION: Worsening airspace disease throughout the left lower lobe. Venancio Morataya MD Head CT 06/21/17 1732 Signed Impressions: Service Date/Time: Wednesday, June 21, 2017 18:11 - CONCLUSION: No acute intracranial findings. Masoud Rodriguez MD Objective Remarks GENERAL: elderly male in no distress- however confused. CARDIOVASCULAR: Regular rate and regular rhythm without murmurs, gallops, or rubs. RESPIRATORY: Clear to auscultation. Breath sounds equal bilaterally. No wheezes , rales, or rhonchi. GASTROINTESTINAL: Abdomen soft, non-tender, nondistended. Normal, active bowel sounds MUSCULOSKELETAL: Extremities without clubbing, cyanosis, or edema. NEURO: awake but not oriented to time or place. Medications and IVs Current Medications IV Flush 2 ml 2 ml UNSCH PRN IV FLUSH FLUSH AFTER USING IV ACCESS; Start at 17:45 Ceftriaxone Sodium 2000 mg/ Sodium Chloride 100 ml @ 200 mls/hr ONCE STAT IV Last administered on 06/21/17 19:14; Start 06/21/17 at 18:47; Stop 06/21/17 at 19:16; Status DC Azithromycin 500 mg/Sodium Chloride 250 ml @ 250 mls/hr ONCE STAT IV Last administered on 06/21/17 20:20; Start 06/21/17 at 18:47; Stop 06/21/17 at 19:50 ; Status DC Ceftriaxone Sodium 1000 mg/ Sodium Chloride 100 ml @ 200 mls/hr Q24H IV Last administered on 06/23/17 21:18; Start 06/22/17 at 20:00 Azithromycin/ Sodium Chloride (Zithromax Inj/ NS 250 ml Inj) 250 ml @ 250 mls/ hr Q24H IV Last administered on 06/23/17 22:31; Start 06/22/17 at 21:00 Albuterol/ Ipratropium (Duoneb Neb) 1 ampule Q4HR NEB PRN NEB SOB/WHEEZING; Start 06/21/17 at 19:45 Budesonide/ Formoterol Fumarate (Symbicort 160-4.5 Inh) 2 puff Q12HR INH Last administered on 06/24/17 08:05; Start 06/21/17 at 21:00 Guaifenesin 600 mg 600 mg BID PO Last administered on 06/24/17 08:05; Start at 21:00 Sodium Chloride (NS 1000 ml Inj) 1,000 ml @ 100 mls/hr Q10H IV Last administered on 06/23/17 22:00; Start 06/21/17 at 20:00 Sodium Chloride (NS Flush) 2 ml UNSCH PRN IV FLUSH FLUSH AFTER USING IV ACCESS ; Start 06/21/17 at 19:45; Status UNV Sodium Chloride (NS Flush) 2 ml BID IV FLUSH Last administered on 06/23/17 21: 00; Start 06/21/17 at 21:00 Ondansetron HCl (Zofran Inj) 4 mg Q6H PRN IVP NAUSEA OR VOMITING; Start at 19:45 Acetaminophen (Tylenol) 650 mg Q6H PRN PO FEVER/PAIN SCALE 1 TO 2; Start at 19:45 Senna/Docusate Sodium (Cindy-Colace) 1 tab BID PO Last administered on 08:04; Start 06/21/17 at 21:00 Magnesium Hydroxide (Milk Of Magnesia Liq) 30 ml Q12H PRN PO MILD - MODERATE CONSTIPATION; Start 06/21/17 at 19:45 Sennosides (Senokot) 17.2 mg Q12H PRN PO MODERATE - SEVERE CONSTIPATION; Start 06/21/17 at 19:45 Bisacodyl (Dulcolax Supp) 10 mg DAILY PRN RECTAL SEVERE CONSITIPATION; Start at 19:45 Lactulose (Lactulose Liq) 30 ml DAILY PRN PO SEVERE CONSITIPATION; Start at 19:45 Carbidopa/Levodopa (Sinemet 10-100 Mg) 1 tab Q6HR PO Last administered on 05:19; Start 06/22/17 at 00:00 Carbidopa/Levodopa (Sinemet 25-100 Mg) 1 tab Q6HR PO Last administered on 05:19; Start 06/22/17 at 00:00 Donepezil HCl (Aricept) 10 mg HS PO Last administered on 06/23/17 21:18; Start 06/21/17 at 22:00 Memantine (Namenda) 10 mg BID PO Last administered on 06/24/17 08:05; Start at 21:00 Citalopram Hydrobromide (CeleXA) 20 mg DAILY PO Last administered on 06/24/17 08:07; Start 06/22/17 at 09:00 Lorazepam (Ativan Inj) 1 mg ONCE ONCE IV PUSH ; Start 06/21/17 at 23:45; Stop 06/21/17 at 23:45; Status DC Lorazepam (Ativan Inj) 0.5 mg ONCE ONCE IV PUSH Last administered on 00:10; Start 06/21/17 at 23:45; Stop 06/21/17 at 23:46; Status DC Haloperidol Lactate (Haldol Inj) 2 mg Q6H PRN IM AGITATION AND/OR HALLUCINATION ; Start 06/22/17 at 09:45; Stop 06/22/17 at 12:12; Status DC Quetiapine Fumarate (SEROquel) 25 mg HS PO Last administered on 06/23/17t 21:18 ; Start 06/22/17 at 21:00 A/P Assessment and Plan A/P 1. Encephalopathy: likely secondary to underlying Dementia compounded by acute UTI/PNA. Family reports worsening confusion. CT Head w/ no acute findings- 2. possible UTI: U/a w/ trace LE, hematuria, bacteriuria. will continue w/ IV abx, IVF for hydration. 3. PNA: CXR w/ left mid and left lower lung infiltrate. Afebrile, WBC normal. Will follow cultures, continue IV Abx, DuoNeb prn if needed. CXR today with worsening infiltrate.will check CT chest and consult pulmonary. consult speech. 4. Recurrent Falls: Likely multifactorial-Dementia, Physical Deconditioning and acute infection. PT for eval/tx. 5. Dementia: Resumed home Sinemet and Aricept. added Seroquel. 6. Thrombocytopenia: no active bleeding, will monitor. 7. DVT Prophylaxis: SCD/Teds. DNR status per my previous discussion with the family. d/w the and . Discharge Planning previously d/w the and PT recommendations noted; case management for SNF. Tashia Lara MD Jun 24, 2017 11:34
[2017-06-24 12:08] VITALS: BP 145/66; PULSE 64; RESP 20; TEMP 98.5; O2SAT 95
[2017-06-24 15:54] VITALS: BP 144/66; PULSE 71; RESP 20; TEMP 97.9; O2SAT 94
--- NOTE | 2017-06-24 15:59 | RADRPT ---
EXAM DATE/TIME: 06/24/2017 15:26 [facility] COMPARISON: CHEST SINGLE AP, June 24, 2017, 6:06. INDICATIONS : Pneumonia. RADIATION DOSE: 7.87 CTDIvol (mGy) MEDICAL HISTORY : Carcinoma, prostate. Dementia. Hypertension. SURGICAL HISTORY : Appendectomy. ENCOUNTER: Initial ACUITY: 1 day PAIN SCALE: 0/10 LOCATION: chest TECHNIQUE: Volumetric scanning of the chest was performed. Using automated exposure control and adjustment of t he mA and/or kV according to patient size, radiation dose was kept as low as reasonably achievable to obtain optimal diagnostic quality images. DICOM format image data is available electronically for r eview and comparison. Follow-up recommendations for detected pulmonary nodules are based at a minimum on nodule size and pa tient risk factors according to Fleischner Society Guidelines. FINDINGS: LUNGS: Bilateral pulmonary infiltrates are observed. The largest involves the left upper lobe there is invol vement of both upper lobes and lower lobes. Several small air bronchograms noted. No appreciable bron chiectasis. PLEURAE: Tiny bilateral pleural effusions. The left is larger than the right. MEDIASTINUM: The heart is normal in size. Significant coronary artery atherosclerotic calcifications are noted. Ao rta and pulmonary arteries are normal in caliber. No bulky adenopathy appreciated on this unenhanced study. AXILLAE: Within normal limits. No lymphadenopathy. MUSCULOSKELETAL: Within normal limits for patient age. MISCELLANEOUS: Bilateral renal calculi observed. The largest stone measures 6 mm. And 11.5 cm cyst is seen involving the upper pole of the right kidney. CONCLUSION: 1. Bilateral pulmonary infiltrates most pronounced within the left upper lobe. Most consistent with a n infectious etiology. 2. Coronary artery atherosclerotic calcifications. 3. Tiny bilateral pleural effusions. 4. Bilateral renal calculi. Lloyd Chaudhary Jr., MD on June 24, 2017 at 15:49 Board Certified Radiologist. This report was verified electronically.
[2017-06-24] MEDS: metroNIDAZOLE 500 MG INJ 100 ML IV SCH (17:29)
[2017-06-24] MEDS: RESP: ALBUTEROL 2.5 MG/IPRATROPIUM 0.5 MG NEB (SCH) NEB (19:43)
--- NOTE | 2017-06-24 19:49 | MB ---
cc: Adolph MAHMOOD DATE OF CONSULTATION 06/24/2017 HISTORY OF THE PRESENT ILLNESS Mr. Tiwari is a 77-year-old white male who presented with pneumonia. He was admitted on June 21 and a chest x-ray today reveals increasing left basilar infiltrate. The patient has chronic of Parkinson's disease, tries to answer questions but has difficulty, has some dementia associated with this but as best I can tell that is about 8-10 years that he has had the disease. He seems rather rigid and immobile lying in bed but comfortable. Most of this information is taken from the chart. He denies being uncomfortable or short of breath. Apparently no history of recurrent pneumonias. His O2 saturations on room air are 94-96%. He has been afebrile. White count has actually been normal since admission, currently 11.6 today. Blood cultures have been negative as has urine culture. He has been on Rocephin and Zithromax. Apparently no significant prior pulmonary history. He is not a smoker. Family has been caring for him at home but apparently he has been getting more and more difficult due to the confusion and frequent falls. PAST MEDICAL HISTORY Only past history otherwise is hypertension. MEDICATIONS Reviewed and recorded in the EMR. SOCIAL HISTORY Really not recorded other than what I have noted above. Apparently family has been in to visit him and have been supportive and caring for him. REVIEW OF SYSTEMS The review of systems is really unobtainable. PHYSICAL EXAMINATION GENERAL: Very awake, alert, cooperative, tries to answer questions but a little confused about details. No distress. VITAL SIGNS: Afebrile, 140/60, pulse 70, respirations 18, sat 95%. HEENT: Sclerae are little pale but anicteric. NECK: The neck veins are not distended. LYMPHATICS: No adenopathy in the neck or supraclavicular region. CHEST: Reveals minimal congestion, bilateral without wheezes. Regular rhythm. No audible S3. No harsh murmur. ABDOMEN: Soft, nontender. EXTREMITIES: No peripheral edema or calf tenderness and no cyanosis or clubbing. IMAGING Chest x-ray today reveals a left lower lobe infiltrate. CT scan done earlier today predominantly left midlung infiltrate, although there is also some infiltrate on the right, very tiny bilateral effusions. DISCUSSION Mr. Tiwari presents with pneumonia. Chest x-ray looks a little worse today. The patient is somewhat immobile. We will try to mobilize him into the chair with physical therapy support as mobilization will certainly help in his recovery. I am also going to add Flagyl. I suspect this is an aspiration pneumonia. We will continue his Rocephin but increase it to twice a day and continue the Zithromax. Also put him on a short course of IV steroids as this can help from an anti-inflammatory standpoint and also put him on regular nebulizer treatments t.i.d. until his chest clears a bit. We will going to suction a sputum to see if we can analyze this with culture. Further diagnostic and/or therapeutic intervention will depend on his ongoing clinical course. R. Dangelo Mahmood MD RSW/KK /5:00 PM /7:37 PM
[2017-06-24 20:29] VITALS: BP 145/65; PULSE 85; RESP 18; TEMP 98.4; O2SAT 97
[2017-06-24] MEDS: DONEPEZIL HCL 5 MG TAB PO SCH (21:48)
[2017-06-24] MEDS: QUEtiapine FUMARATE 25 MG TAB PO SCH (21:48)
[2017-06-24] MEDS: methylPREDNISolone SOD SUCC 40 MG/1 ML VIAL IV PUSH SCH (21:48)
[2017-06-24] MEDS: cefTRIAXone INJ 1,000 MG in SODIUM CHLORIDE 0.9% INJ 100 ML IV SCH (21:49)
[2017-06-24] MEDS: AZITHROMYCIN INJ 500 MG in SODIUM CHLOR 0.9% 250 ML INJ 250 ML IV SCH (21:50)
--- NOTE | 2017-06-24 22:58 | HHI.PR ---
Addendum to Inpatient Note Addendum Reason: Additional Documentation Additional Information Appreciate call from Dr. Burt Chand Pts now ill with pneumonia symptoms and will be unable to come visit patient for a few days. 2 of his children are flying into town on . Discussed with today and she notes his quality of life was decreased prior to this illness, however he is rarely sick (his issue has been parkinsons with dementia not illnesses) and was still mostly independent in the house other than needing meds prepared for him. She agreed with DNR status. continue to try to treat illness short of intubation. Camryn Thibodeaux MD Jun 24, 2017 22:57
[2017-06-25] VITALS (8 sets, daily range): BP systolic 104–137; BP diastolic 52–70; PULSE 72–99; RESP 18–20; TEMP 96.2–99; O2SAT 92–97
[2017-06-25] MEDS: CARBIDOPA/LEVODOPA 25 MG/100 MG TAB PO SCH ×4 (00:09→17:03)
[2017-06-25] MEDS: CARBIDOPA/LEVODOPA 10 MG/100 MG TAB PO SCH ×4 (00:09→17:03)
[2017-06-25] MEDS: metroNIDAZOLE 500 MG INJ 100 ML IV SCH ×3 (02:16→17:03)
[2017-06-25] MEDS: RESP: ALBUTEROL 2.5 MG/IPRATROPIUM 0.5 MG NEB (SCH) NEB ×3 (08:05→19:52)
[2017-06-25] MEDS: MEMANTINE HCL 10 MG TAB PO SCH ×2 (09:31→22:00)
[2017-06-25] MEDS: cefTRIAXone INJ 1,000 MG in SODIUM CHLORIDE 0.9% INJ 100 ML IV SCH ×2 (09:31→22:01)
[2017-06-25] MEDS: guaiFENesin E.R. 600 MG TAB PO SCH ×2 (09:31→22:00)
[2017-06-25] MEDS: CITALOPRAM HYDROBROMIDE 20 MG TAB PO SCH (09:31)
[2017-06-25] MEDS: methylPREDNISolone SOD SUCC 40 MG/1 ML VIAL IV PUSH SCH ×2 (09:32→22:00)
[2017-06-25] MEDS: DOCUSATE SODIUM 50 MG/SENNA 8.6 MG TAB PO SCH ×2 (09:32→22:00)
[2017-06-25] MEDS: SODIUM CHLORIDE 0.9% FLUSH 10 ML FLUSH IV FLUSH SCH ×2 (09:32→21:00)
--- NOTE | 2017-06-25 11:13 | HHI.PR ---
Subjective Remarks looks more alert today. in no acute distress and remains afebrile. family at the bedside. Objective Vitals Vital Signs Date Time Temp Pulse Resp B/P Pulse Ox O2 Delivery O2 Flow Rate FiO2 06/25/17 08:35 97.9 81 18 111/55 94 06/25/17 08:07 97 21 06/25/17 04:35 96.2 72 20 137/70 95 06/25/17 00:15 97.9 83 20 131/60 96 06/24/17 20:29 98.4 85 18 145/65 97 06/24/17 15:54 97.9 71 20 144/66 94 06/24/17 12:08 98.5 64 20 145/66 95 I/O 06/24/17 06/24/17 06/24/17 06/25/17 06/25/17 06/25/17 07:00 15:00 23:00 07:00 15:00 23:00 Intake Total 830 ml 540 ml 450 ml Balance 830 ml 540 ml 450 ml Intake Oral 180 ml 120 ml IV Total 650 ml 420 ml 450 ml # Voids 4 2 1 1 1 # Bowel Movements 2 2 1 1 Result Diagram: 06/24/17 0900 06/23/17 1122 Imaging Last Impressions Chest X-Ray 06/24/17 0600 Signed Impressions: Service Date/Time: Saturday, June 24, 2017 06:06 - CONCLUSION: Worsening airspace disease throughout the left lower lobe. Venancio Morataya MD Chest CT 06/24/17 0000 Signed Impressions: Service Date/Time: Saturday, June 24, 2017 15:26 - CONCLUSION: 1. Bilateral pulmonary infiltrates most pronounced within the left upper lobe. Most consistent with an infectious etiology. 2. Coronary artery atherosclerotic calcifications. 3. Tiny bilateral pleural effusions. 4. Bilateral renal calculi. Lloyd Chaudhary Jr., MD Head CT 06/21/17 1732 Signed Impressions: Service Date/Time: Wednesday, June 21, 2017 18:11 - CONCLUSION: No acute intracranial findings. Masoud Rodriguez MD Objective Remarks GENERAL: elderly male in no distress- however confused. CARDIOVASCULAR: Regular rate and regular rhythm without murmurs, gallops, or rubs. RESPIRATORY: Clear to auscultation. Breath sounds equal bilaterally. No wheezes , rales, or rhonchi. GASTROINTESTINAL: Abdomen soft, non-tender, nondistended. Normal, active bowel sounds MUSCULOSKELETAL: Extremities without clubbing, cyanosis, or edema. NEURO: awake and seems more alert today; oriented to person and partly to place. Medications and IVs Current Medications IV Flush 2 ml 2 ml UNSCH PRN IV FLUSH FLUSH AFTER USING IV ACCESS; Start at 17:45 Ceftriaxone Sodium 2000 mg/ Sodium Chloride 100 ml @ 200 mls/hr ONCE STAT IV Last administered on 06/21/17 19:14; Start 06/21/17 at 18:47; Stop 06/21/17 at 19:16; Status DC Azithromycin 500 mg/Sodium Chloride 250 ml @ 250 mls/hr ONCE STAT IV Last administered on 06/21/17 20:20; Start 06/21/17 at 18:47; Stop 06/21/17 at 19:50 ; Status DC Ceftriaxone Sodium 1000 mg/ Sodium Chloride 100 ml @ 200 mls/hr Q24H IV Last administered on 06/23/17 21:18; Start 06/22/17 at 20:00; Stop 06/24/17 at 16:59 ; Status DC Azithromycin/ Sodium Chloride (Zithromax Inj/ NS 250 ml Inj) 250 ml @ 250 mls/ hr Q24H IV Last administered on 06/24/17 21:50; Start 06/22/17 at 21:00 Albuterol/ Ipratropium (Duoneb Neb) 1 ampule Q4HR NEB PRN NEB SOB/WHEEZING; Start 06/21/17 at 19:45 Budesonide/ Formoterol Fumarate (Symbicort 160-4.5 Inh) 2 puff Q12HR INH Last administered on 06/24/17 08:05; Start 06/21/17 at 21:00; Stop 06/24/17 at 16:59 ; Status DC Guaifenesin 600 mg 600 mg BID PO Last administered on 06/25/17 09:31; Start at 21:00 Sodium Chloride (NS 1000 ml Inj) 1,000 ml @ 100 mls/hr Q10H IV Last administered on 06/23/17 22:00; Start 06/21/17 at 20:00; Status Hold Sodium Chloride (NS Flush) 2 ml UNSCH PRN IV FLUSH FLUSH AFTER USING IV ACCESS ; Start 06/21/17 at 19:45; Status UNV Sodium Chloride (NS Flush) 2 ml BID IV FLUSH Last administered on 06/25/17 09: 32; Start 06/21/17 at 21:00 Ondansetron HCl (Zofran Inj) 4 mg Q6H PRN IVP NAUSEA OR VOMITING; Start at 19:45 Acetaminophen (Tylenol) 650 mg Q6H PRN PO FEVER/PAIN SCALE 1 TO 2; Start at 19:45 Senna/Docusate Sodium (Cindy-Colace) 1 tab BID PO Last administered on 09:32; Start 06/21/17 at 21:00 Magnesium Hydroxide (Milk Of Magnesia Liq) 30 ml Q12H PRN PO MILD - MODERATE CONSTIPATION; Start 06/21/17 at 19:45 Sennosides (Senokot) 17.2 mg Q12H PRN PO MODERATE - SEVERE CONSTIPATION; Start 06/21/17 at 19:45 Bisacodyl (Dulcolax Supp) 10 mg DAILY PRN RECTAL SEVERE CONSITIPATION; Start at 19:45 Lactulose (Lactulose Liq) 30 ml DAILY PRN PO SEVERE CONSITIPATION; Start at 19:45 Carbidopa/Levodopa (Sinemet 10-100 Mg) 1 tab Q6HR PO Last administered on 05:32; Start 06/22/17 at 00:00 Carbidopa/Levodopa (Sinemet 25-100 Mg) 1 tab Q6HR PO Last administered on 05:33; Start 06/22/17 at 00:00 Donepezil HCl (Aricept) 10 mg HS PO Last administered on 06/24/17 21:48; Start 06/21/17 at 22:00 Memantine (Namenda) 10 mg BID PO Last administered on 06/25/17 09:31; Start at 21:00 Citalopram Hydrobromide (CeleXA) 20 mg DAILY PO Last administered on 06/25/17 09:31; Start 06/22/17 at 09:00 Lorazepam (Ativan Inj) 1 mg ONCE ONCE IV PUSH ; Start 06/21/17 at 23:45; Stop 06/21/17 at 23:45; Status DC Lorazepam (Ativan Inj) 0.5 mg ONCE ONCE IV PUSH Last administered on 00:10; Start 06/21/17 at 23:45; Stop 06/21/17 at 23:46; Status DC Haloperidol Lactate (Haldol Inj) 2 mg Q6H PRN IM AGITATION AND/OR HALLUCINATION ; Start 06/22/17 at 09:45; Stop 06/22/17 at 12:12; Status DC Quetiapine Fumarate 25 mg 25 mg HS PO Last administered on 06/24/17 21:48; Start 06/22/17 at 21:00 Ceftriaxone Sodium 1000 mg/ Sodium Chloride 100 ml @ 200 mls/hr BID IV Last administered on 06/25/17 09:31; Start 06/24/17 at 21:00 Metronidazole (Flagyl 500 Mg Inj) 100 ml @ 100 mls/hr Q8H IV Last administered on 06/25/17 09:30; Start 06/24/17 at 18:00 Albuterol/ Ipratropium (Duoneb Neb) 1 ampule TID NEB NEB Last administered on 06/25/17 08:05; Start 06/24/17 at 20:00 Methylprednisolone Sodium Succinate (SoluMEDROL INJ) 20 mg Q12HR IV PUSH Last administered on 06/25/17 09:32; Start 06/24/17 at 21:00; Stop 06/28/17 at 07:00 A/P Assessment and Plan A/P 1. Encephalopathy: likely secondary to underlying Dementia compounded by acute PNA. CT Head w/ no acute findings- continue antibiotics and will monitor. 2 PNA: CXR w/ left mid and left lower lung infiltrate. continue with antibiotics and neb treatment- pulmonary consult appreciated; steroid was added. ST consulted. 3. Recurrent Falls: Likely multifactorial-Dementia, Physical Deconditioning and acute infection. PT for eval/tx. 4. Dementia: Resumed home Sinemet and Aricept. added Seroquel. 5. Thrombocytopenia: no active bleeding, will monitor. 6. DVT Prophylaxis: SCD/Teds. DNR status per my previous discussion with the family. Discharge Planning previously d/w the and PT recommendations noted; case management for SNF. Tashia Lara MD Jun 25, 2017 11:13
[2017-06-25] MEDS: DONEPEZIL HCL 5 MG TAB PO SCH (21:59)
[2017-06-25] MEDS: QUEtiapine FUMARATE 25 MG TAB PO SCH (22:00)
[2017-06-25] MEDS: AZITHROMYCIN INJ 500 MG in SODIUM CHLOR 0.9% 250 ML INJ 250 ML IV SCH (22:01)
[2017-06-26] VITALS (7 sets, daily range): BP systolic 100–166; BP diastolic 56–70; PULSE 76–121; RESP 18–20; TEMP 97.5–98.6; O2SAT 94–98
[2017-06-26] MEDS: CARBIDOPA/LEVODOPA 25 MG/100 MG TAB PO SCH ×5 (03:12→23:34)
[2017-06-26] MEDS: CARBIDOPA/LEVODOPA 10 MG/100 MG TAB PO SCH ×5 (03:12→23:34)
[2017-06-26] MEDS: metroNIDAZOLE 500 MG INJ 100 ML IV SCH ×3 (03:13→18:38)
[2017-06-26] MEDS: RESP: ALBUTEROL 2.5 MG/IPRATROPIUM 0.5 MG NEB (SCH) NEB ×3 (08:15→20:09)
[2017-06-26] MEDS: methylPREDNISolone SOD SUCC 40 MG/1 ML VIAL IV PUSH SCH ×2 (09:00→20:03)
[2017-06-26] MEDS: cefTRIAXone INJ 1,000 MG in SODIUM CHLORIDE 0.9% INJ 100 ML IV SCH ×2 (09:00→20:03)
[2017-06-26] MEDS: SODIUM CHLORIDE 0.9% FLUSH 10 ML FLUSH IV FLUSH SCH ×2 (09:00→20:04)
[2017-06-26] MEDS: DOCUSATE SODIUM 50 MG/SENNA 8.6 MG TAB PO SCH ×2 (09:00→20:04)
[2017-06-26] MEDS: MEMANTINE HCL 10 MG TAB PO SCH ×2 (09:00→20:02)
[2017-06-26] MEDS: guaiFENesin E.R. 600 MG TAB PO SCH ×2 (09:00→20:03)
[2017-06-26] MEDS: CITALOPRAM HYDROBROMIDE 20 MG TAB PO SCH (09:00)
--- NOTE | 2017-06-26 09:07 | HHI.PR ---
Addendum to Inpatient Note Addendum Reason: Additional Documentation Additional Information HI! Courtesy visit to see patient. HE seems comfortable and not in distress today. His speech is more scattered and more difficult to understand today than baseline prior to hospitalization, however family who is in the room states he is tremendously better than a few days ago. He ate a few bites of yogert, eggs and a piece of garrett, OJ and water this AM so far. He is stiffer in his movements than usual, some trouble following commands (again worse than his baseline). Looking at his sinemet dosing it looks like he is scheduled Q6 hours and had meds given at 3am today? May want to check with his regarding the times he normally takes the sinemet because I thought she told me they take it 8am, 12 noon, 2 pm and 4pm and then his namenda and aricept about 8pm (maybe adjusting his sinemet to his usual routine will make him less stiff?) . Camryn Thibodeaux MD Jun 26, 2017 09:07
--- NOTE | 2017-06-26 10:30 | HHI.PR ---
Subjective Remarks f/u; pneumonia in no acute distress. looks more alert today. no fever. 's note was reviewed. d/w the RN. Objective Vitals Vital Signs Date Time Temp Pulse Resp B/P Pulse Ox O2 Delivery O2 Flow Rate FiO2 06/26/17 08:15 96 06/26/17 08:00 97.7 76 18 140/64 95 06/26/17 00:00 97.5 93 20 166/70 97 06/25/17 20:49 99.0 99 18 104/52 92 06/25/17 19:54 92 21 06/25/17 16:11 97.8 83 18 129/60 93 06/25/17 12:31 97.3 77 18 116/55 94 I/O 06/25/17 06/25/17 06/25/17 06/26/17 06/26/17 06/26/17 07:00 15:00 23:00 07:00 15:00 23:00 Intake Total 450 ml 330 ml Balance 450 ml 330 ml Intake Oral 330 ml IV Total 450 ml # Voids 1 2 3 # Bowel Movements 1 1 Result Diagram: 06/24/17 0900 06/23/17 1122 Imaging Last Impressions Chest X-Ray 06/24/17 0600 Signed Impressions: Service Date/Time: Saturday, June 24, 2017 06:06 - CONCLUSION: Worsening airspace disease throughout the left lower lobe. Venancio Morataya MD Chest CT 06/24/17 0000 Signed Impressions: Service Date/Time: Saturday, June 24, 2017 15:26 - CONCLUSION: 1. Bilateral pulmonary infiltrates most pronounced within the left upper lobe. Most consistent with an infectious etiology. 2. Coronary artery atherosclerotic calcifications. 3. Tiny bilateral pleural effusions. 4. Bilateral renal calculi. Lloyd Chaudhary Jr., MD Head CT 06/21/17 1732 Signed Impressions: Service Date/Time: Wednesday, June 21, 2017 18:11 - CONCLUSION: No acute intracranial findings. Masoud Rodriguez MD Objective Remarks GENERAL: elderly male in no distress- CARDIOVASCULAR: Regular rate and regular rhythm without murmurs, gallops, or rubs. RESPIRATORY: Clear to auscultation. Breath sounds equal bilaterally. No wheezes , rales, or rhonchi. GASTROINTESTINAL: Abdomen soft, non-tender, nondistended. Normal, active bowel sounds MUSCULOSKELETAL: Extremities without clubbing, cyanosis, or edema. NEURO: awake and seems more alert today; oriented to person and partly to place. Medications and IVs Current Medications IV Flush 2 ml 2 ml UNSCH PRN IV FLUSH FLUSH AFTER USING IV ACCESS; Start at 17:45 Ceftriaxone Sodium 2000 mg/ Sodium Chloride 100 ml @ 200 mls/hr ONCE STAT IV Last administered on 06/21/17 19:14; Start 06/21/17 at 18:47; Stop 06/21/17 at 19:16; Status DC Azithromycin 500 mg/Sodium Chloride 250 ml @ 250 mls/hr ONCE STAT IV Last administered on 06/21/17 20:20; Start 06/21/17 at 18:47; Stop 06/21/17 at 19:50 ; Status DC Ceftriaxone Sodium 1000 mg/ Sodium Chloride 100 ml @ 200 mls/hr Q24H IV Last administered on 06/23/17 21:18; Start 06/22/17 at 20:00; Stop 06/24/17 at 16:59 ; Status DC Azithromycin/ Sodium Chloride (Zithromax Inj/ NS 250 ml Inj) 250 ml @ 250 mls/ hr Q24H IV Last administered on 06/25/17 22:01; Start 06/22/17 at 21:00 Albuterol/ Ipratropium (Duoneb Neb) 1 ampule Q4HR NEB PRN NEB SOB/WHEEZING; Start 06/21/17 at 19:45 Budesonide/ Formoterol Fumarate (Symbicort 160-4.5 Inh) 2 puff Q12HR INH Last administered on 06/24/17 08:05; Start 06/21/17 at 21:00; Stop 06/24/17 at 16:59 ; Status DC Guaifenesin 600 mg 600 mg BID PO Last administered on 06/25/17 22:00; Start at 21:00 Sodium Chloride (NS 1000 ml Inj) 1,000 ml @ 100 mls/hr Q10H IV Last administered on 06/23/17 22:00; Start 06/21/17 at 20:00; Status Hold Sodium Chloride (NS Flush) 2 ml UNSCH PRN IV FLUSH FLUSH AFTER USING IV ACCESS ; Start 06/21/17 at 19:45; Status UNV Sodium Chloride (NS Flush) 2 ml BID IV FLUSH Last administered on 06/25/17 21: 00; Start 06/21/17 at 21:00 Ondansetron HCl (Zofran Inj) 4 mg Q6H PRN IVP NAUSEA OR VOMITING; Start at 19:45 Acetaminophen (Tylenol) 650 mg Q6H PRN PO FEVER/PAIN SCALE 1 TO 2; Start at 19:45 Senna/Docusate Sodium (Cindy-Colace) 1 tab BID PO Last administered on 22:00; Start 06/21/17 at 21:00 Magnesium Hydroxide (Milk Of Magnesia Liq) 30 ml Q12H PRN PO MILD - MODERATE CONSTIPATION; Start 06/21/17 at 19:45 Sennosides (Senokot) 17.2 mg Q12H PRN PO MODERATE - SEVERE CONSTIPATION; Start 06/21/17 at 19:45 Bisacodyl (Dulcolax Supp) 10 mg DAILY PRN RECTAL SEVERE CONSITIPATION; Start at 19:45 Lactulose (Lactulose Liq) 30 ml DAILY PRN PO SEVERE CONSITIPATION; Start at 19:45 Carbidopa/Levodopa (Sinemet 10-100 Mg) 1 tab Q6HR PO Last administered on 06:30; Start 06/22/17 at 00:00 Carbidopa/Levodopa (Sinemet 25-100 Mg) 1 tab Q6HR PO Last administered on 06:30; Start 06/22/17 at 00:00 Donepezil HCl (Aricept) 10 mg HS PO Last administered on 06/25/17 21:59; Start 06/21/17 at 22:00 Memantine (Namenda) 10 mg BID PO Last administered on 06/25/17 22:00; Start at 21:00 Citalopram Hydrobromide (CeleXA) 20 mg DAILY PO Last administered on 06/25/17 09:31; Start 06/22/17 at 09:00 Lorazepam (Ativan Inj) 1 mg ONCE ONCE IV PUSH ; Start 06/21/17 at 23:45; Stop 06/21/17 at 23:45; Status DC Lorazepam (Ativan Inj) 0.5 mg ONCE ONCE IV PUSH Last administered on 00:10; Start 06/21/17 at 23:45; Stop 06/21/17 at 23:46; Status DC Haloperidol Lactate (Haldol Inj) 2 mg Q6H PRN IM AGITATION AND/OR HALLUCINATION ; Start 06/22/17 at 09:45; Stop 06/22/17 at 12:12; Status DC Quetiapine Fumarate 25 mg 25 mg HS PO Last administered on 06/25/17 22:00; Start 06/22/17 at 21:00 Ceftriaxone Sodium 1000 mg/ Sodium Chloride 100 ml @ 200 mls/hr BID IV Last administered on 06/25/17 22:01; Start 06/24/17 at 21:00 Metronidazole (Flagyl 500 Mg Inj) 100 ml @ 100 mls/hr Q8H IV Last administered on 06/26/17 03:13; Start 06/24/17 at 18:00 Albuterol/ Ipratropium (Duoneb Neb) 1 ampule TID NEB NEB Last administered on 06/26/17 08:15; Start 06/24/17 at 20:00 Methylprednisolone Sodium Succinate (SoluMEDROL INJ) 20 mg Q12HR IV PUSH Last administered on 06/25/17 22:00; Start 06/24/17 at 21:00; Stop 06/28/17 at 07:00 A/P Assessment and Plan A/P 1. Encephalopathy: likely secondary to underlying Dementia compounded by acute PNA. CT Head w/ no acute findings- continue antibiotics and will monitor. 2 pneumonia- suspect aspiration: continue with antibiotics and neb treatment- steroid was added. ST consulted.pulmonary following. 3. Recurrent Falls: Likely multifactorial-Dementia, Physical Deconditioning and acute infection. PT for eval/tx. 4. Dementia/Parkinson's disease: Resumed home Sinemet and Aricept. added Seroquel. will verify the timing of the home meds with the ; d/w the RN. 5. Thrombocytopenia: no active bleeding, will monitor. 6. DVT Prophylaxis: SCD/Teds. DNR status per my previous discussion with the family. Discharge Planning dc planning to SNF- likely early next week. Tashia Lara MD Jun 26, 2017 10:30
[2017-06-26] MEDS: DONEPEZIL HCL 5 MG TAB PO SCH (20:02)
[2017-06-26] MEDS: QUEtiapine FUMARATE 25 MG TAB PO SCH (20:02)
[2017-06-26] MEDS: LACTOBACILLUS ACIDOPHILUS TAB PO SCH (20:02)
[2017-06-26] MEDS: AZITHROMYCIN INJ 500 MG in SODIUM CHLOR 0.9% 250 ML INJ 250 ML IV SCH (20:20)
[2017-06-27] VITALS (7 sets, daily range): BP systolic 130–170; BP diastolic 61–83; PULSE 78–101; RESP 18–20; TEMP 97.6–98.9; O2SAT 93–100
[2017-06-27] MEDS: metroNIDAZOLE 500 MG INJ 100 ML IV SCH ×3 (01:07→17:35)
[2017-06-27] MEDS: CARBIDOPA/LEVODOPA 10 MG/100 MG TAB PO SCH ×4 (05:15→20:28)
[2017-06-27] MEDS: CARBIDOPA/LEVODOPA 25 MG/100 MG TAB PO SCH ×4 (05:15→20:27)
[2017-06-27] MEDS: RESP: ALBUTEROL 2.5 MG/IPRATROPIUM 0.5 MG NEB (SCH) NEB ×3 (08:28→20:01)
[2017-06-27 09:01] LABS: AUTOMATED NEUTROPHIL # 10.9 TH/MM3 (1.8-7.7); BASOPHIL % 0.2 % (0.0-2.0); EOSINOPHIL % 0.1 % (0.0-4.0); HEMATOCRIT 43.4 % (39.0-51.0); HEMO FLAGS DIFF FINAL; LYMPH % 11.2 % (9.0-44.0); LYMPHOCYTE # 1.5 TH/MM3 (1.0-4.8); MEAN CELL VOLUME 89.5 FL (80.0-100.0); MEAN CORPUSCULAR HEMOGLOBIN 29.1 PG (27.0-34.0); MEAN CORPUSCULAR HGB CONC 32.5 % (32.0-36.0); MONO % 8.8 % (0.0-8.0); NEUT % 79.7 % (16.0-70.0); PLATELET COUNT 279 TH/MM3 (150-450); RED BLOOD COUNT 4.85 MIL/MM3 (4.50-5.90); RED CELL DISTRIBUTION WIDTH 13.9 % (11.6-17.2); WHITE BLOOD COUNT 13.7 TH/MM3 (4.0-11.0)
[2017-06-27] MEDS: MEMANTINE HCL 10 MG TAB PO SCH ×2 (09:05→20:25)
[2017-06-27] MEDS: guaiFENesin E.R. 600 MG TAB PO SCH ×2 (09:05→20:24)
[2017-06-27] MEDS: DOCUSATE SODIUM 50 MG/SENNA 8.6 MG TAB PO SCH ×2 (09:05→20:25)
[2017-06-27] MEDS: methylPREDNISolone SOD SUCC 40 MG/1 ML VIAL IV PUSH SCH ×2 (09:05→20:24)
[2017-06-27] MEDS: CITALOPRAM HYDROBROMIDE 20 MG TAB PO SCH (09:06)
[2017-06-27] MEDS: cefTRIAXone INJ 1,000 MG in SODIUM CHLORIDE 0.9% INJ 100 ML IV SCH ×2 (09:06→20:24)
[2017-06-27] MEDS: SODIUM CHLORIDE 0.9% FLUSH 10 ML FLUSH IV FLUSH SCH ×2 (09:06→20:28)
[2017-06-27] MEDS: LACTOBACILLUS ACIDOPHILUS TAB PO SCH ×2 (09:06→20:28)
[2017-06-27 09:15] LABS: BICARBONATE 29.2 MEQ/L (21.0-32.0)
--- NOTE | 2017-06-27 13:44 | HHI.PR ---
Subjective Remarks Pt feels tired. denies any CP/worsening SOB/nausea or vomiting. per family appetite is poor but they are encouraging him to eat. Per son in law, he is still coughing Objective Vitals Vital Signs Date Time Temp Pulse Resp B/P Pulse Ox O2 Delivery O2 Flow Rate FiO2 06/27/17 12:00 98.9 79 19 158/70 96 06/27/17 08:29 93 06/27/17 08:00 98.2 81 19 136/63 98 06/27/17 04:48 97.8 101 18 130/62 98 06/27/17 01:10 98.3 91 18 131/62 100 06/26/17 20:19 97.6 101 18 125/59 98 06/26/17 20:09 95 06/26/17 16:30 98.6 121 18 100/56 94 I/O 06/26/17 06/26/17 06/26/17 06/27/17 06/27/17 06/27/17 07:00 15:00 23:00 07:00 15:00 23:00 Intake Total 240 ml Balance 240 ml Intake Oral 240 ml # Voids 6 3 2 # Bowel Movements 2 2 Result Diagram: 06/27/17 0740 06/27/17 0740 Imaging Last Impressions Chest X-Ray 06/24/17 0600 Signed Impressions: Service Date/Time: Saturday, June 24, 2017 06:06 - CONCLUSION: Worsening airspace disease throughout the left lower lobe. Venancio Morataya MD Chest CT 06/24/17 0000 Signed Impressions: Service Date/Time: Saturday, June 24, 2017 15:26 - CONCLUSION: 1. Bilateral pulmonary infiltrates most pronounced within the left upper lobe. Most consistent with an infectious etiology. 2. Coronary artery atherosclerotic calcifications. 3. Tiny bilateral pleural effusions. 4. Bilateral renal calculi. Lloyd Chaudhary Jr., MD Head CT 06/21/17 6342 Signed Impressions: Service Date/Time: Wednesday, June 21, 2017 18:11 - CONCLUSION: No acute intracranial findings. Masoud Rodriguez MD Objective Remarks GENERAL: elderly male laying in bed quietly CARDIOVASCULAR: Regular rate and regular rhythm without murmurs RESPIRATORY:appears clear to auscultation. breath sounds are diminished. GASTROINTESTINAL: Abdomen soft, non-tender, nondistended. MUSCULOSKELETAL: Extremities without edema. NEURO: awake and alert but is very quiet, answers some of my questions, resting tremors noted in right upper extremity A/P Problem List: (1) Encephalopathy ICD Code: G93.40 Status: Acute (2) UTI (urinary tract infection) ICD Code: N39.0 Status: Acute (3) PNA (pneumonia) ICD Code: J18.9 Status: Acute (4) Recurrent falls ICD Code: R29.6 Status: Acute (5) Dementia ICD Code: F03.90 Status: Acute (6) Thrombocytopenia ICD Code: D69.6 Status: Acute (7) HTN (hypertension) ICD Code: I10 Status: Acute Assessment and Plan 1. Encephalopathy: likely secondary to underlying Dementia compounded by acute PNA. CT Head w/ no acute findings- continue antibiotics and will monitor. 2 pneumonia- suspect aspiration: continue with antibiotics, rocephin BID, azithro and flagyl. continue neb treatment and steroids. pulmDr. Silva following. ST evaluated the pt and recommended regular diet w thin liquids 3. Recurrent Falls: Likely multifactorial-Dementia, Physical Deconditioning and acute infection. PT for eval/tx. 4. Dementia/Parkinson's disease: on Sinemet and Aricept. and Seroquel. adjust timing of meds 5. Thrombocytopenia: no active bleeding, will monitor. 6. DVT Prophylaxis: SCD/Teds. DNR status per my previous discussion with the family. Discharge Planning continue current management Jessica Ngo MD Jun 27, 2017 13:44
[2017-06-27] MEDS: QUEtiapine FUMARATE 25 MG TAB PO SCH (20:24)
[2017-06-27] MEDS: AZITHROMYCIN INJ 500 MG in SODIUM CHLOR 0.9% 250 ML INJ 250 ML IV SCH (20:25)
[2017-06-27] MEDS: DONEPEZIL HCL 5 MG TAB PO SCH (20:25)
[2017-06-28] VITALS (7 sets, daily range): BP systolic 100–168; BP diastolic 49–77; PULSE 71–87; RESP 16–18; TEMP 97.5–98.9; O2SAT 93–100
[2017-06-28] MEDS ORDERED: LORazepam 2 MG/ML VIAL IV PUSH ONE (03:45)
[2017-06-28] MEDS: metroNIDAZOLE 500 MG INJ 100 ML IV SCH ×3 (03:56→18:22)
[2017-06-28] MEDS: CARBIDOPA/LEVODOPA 25 MG/100 MG TAB PO SCH ×4 (08:00→21:25)
[2017-06-28] MEDS: CITALOPRAM HYDROBROMIDE 20 MG TAB PO SCH (08:00)
[2017-06-28] MEDS: CARBIDOPA/LEVODOPA 10 MG/100 MG TAB PO SCH ×4 (08:00→21:25)
[2017-06-28] MEDS: MEMANTINE HCL 10 MG TAB PO SCH ×2 (08:00→21:18)
[2017-06-28] MEDS: SODIUM CHLORIDE 0.9% FLUSH 10 ML FLUSH IV FLUSH SCH ×2 (09:00→21:19)
[2017-06-28] MEDS: cefTRIAXone INJ 1,000 MG in SODIUM CHLORIDE 0.9% INJ 100 ML IV SCH ×2 (09:00→21:18)
[2017-06-28] MEDS: DOCUSATE SODIUM 50 MG/SENNA 8.6 MG TAB PO SCH ×2 (09:00→21:18)
[2017-06-28] MEDS: LACTOBACILLUS ACIDOPHILUS TAB PO SCH ×2 (09:00→21:18)
[2017-06-28] MEDS: guaiFENesin E.R. 600 MG TAB PO SCH ×2 (09:00→21:18)
[2017-06-28] MEDS: RESP: ALBUTEROL 2.5 MG/IPRATROPIUM 0.5 MG NEB (SCH) NEB ×2 (09:10→13:10)
--- NOTE | 2017-06-28 11:52 | RADRPT ---
EXAM DATE/TIME: 06/28/2017 07:48 [facility] COMPARISON: CHEST SINGLE AP, June 24, 2017, 6:06. INDICATIONS : Cough and congestion. MEDICAL HISTORY : Carcinoma, prostatic. Hypertension SURGICAL HISTORY : None. ENCOUNTER: Subsequent ACUITY: 4 - 6 days PAIN SCORE: Non-responsive. LOCATION: Bilateral chest FINDINGS: A single view of the chest demonstrates left midlung and left basilar airspace disease slightly impro jill. Heart borderline enlarged. Osseous structures are intact. CONCLUSION: Left lung consolidation is slightly improved. Mukul Houston MD on June 28, 2017 at 8:43 Board Certified Radiologist. This report was verified electronically.
--- NOTE | 2017-06-28 13:56 | HHI.PR ---
Subjective Remarks Pt seems more alert this morning. Able to say yes or no to some of my questions. He mumbles more. Pt denies any Pain, worsening sob, n/v son at bedside. would like to make sure his meds are given at the right times. Objective Vitals Vital Signs Date Time Temp Pulse Resp B/P (MAP) Pulse Ox O2 Delivery O2 Flow Rate FiO2 06/28/17 12:00 98.6 77 16 100/51 (67) 93 06/28/17 08:00 98.9 76 17 132/63 (86) 94 06/28/17 04:23 98.3 87 18 143/63 (89) 100 06/28/17 00:50 98.9 76 18 168/77 (107) 100 06/27/17 20:00 98.1 78 18 139/61 (87) 100 06/27/17 20:00 95 21 06/27/17 16:00 97.6 78 20 170/83 (112) 97 I/O 06/27/17 06/27/17 06/27/17 06/28/17 06/28/17 06/28/17 07:00 15:00 23:00 07:00 15:00 23:00 Intake Total 480 ml 300 ml Balance 480 ml 300 ml Intake Oral 480 ml IV Total 300 ml # Voids 2 4 2 # Bowel Movements 3 1 Result Diagram: 06/27/17 0740 06/27/17 0740 Imaging Last Impressions Chest X-Ray 06/24/17 0600 Signed Impressions: Service Date/Time: Saturday, June 24, 2017 06:06 - CONCLUSION: Worsening airspace disease throughout the left lower lobe. Venancio Morataya MD Chest CT 06/24/17 0000 Signed Impressions: Service Date/Time: Saturday, June 24, 2017 15:26 - CONCLUSION: 1. Bilateral pulmonary infiltrates most pronounced within the left upper lobe. Most consistent with an infectious etiology. 2. Coronary artery atherosclerotic calcifications. 3. Tiny bilateral pleural effusions. 4. Bilateral renal calculi. Lloyd Chaudhary Jr., MD Head CT 06/21/17 4562 Signed Impressions: Service Date/Time: Wednesday, June 21, 2017 18:11 - CONCLUSION: No acute intracranial findings. Masoud Rodriguez MD Objective Remarks GENERAL: elderly male laying in bed quietly CARDIOVASCULAR: Regular rate and regular rhythm without murmurs RESPIRATORY:appears clear to auscultation. breath sounds are diminished. GASTROINTESTINAL: Abdomen soft, non-tender, nondistended. MUSCULOSKELETAL: Extremities without edema. NEURO: awake and alert but is very quiet, answers some of my questions by mumbling, resting tremors noted in right upper extremity A/P Problem List: (1) Encephalopathy ICD Code: G93.40 - Encephalopathy, unspecified Status: Acute (2) UTI (urinary tract infection) ICD Code: N39.0 - Urinary tract infection, site not specified Status: Acute (3) PNA (pneumonia) ICD Code: J18.9 - Pneumonia, unspecified organism Status: Acute (4) Recurrent falls ICD Code: R29.6 - Repeated falls Status: Acute (5) Dementia ICD Code: F03.90 - Unspecified dementia without behavioral disturbance Status: Acute (6) Thrombocytopenia ICD Code: D69.6 - Thrombocytopenia, unspecified Status: Acute (7) HTN (hypertension) ICD Code: I10 - Essential (primary) hypertension Status: Acute Assessment and Plan 1. Encephalopathy: likely secondary to underlying Dementia compounded by acute PNA. CT Head w/ no acute findings- continue antibiotics and will monitor. 2 pneumonia- suspect aspiration: continue with antibiotics, rocephin BID, azithro and flagyl. continue neb treatment. off steroids. pulmDr. Silva following. ST evaluated the pt and recommended regular diet w thin liquids 3. Recurrent Falls: Likely multifactorial-Dementia, Physical Deconditioning and acute infection. PT following. 4. Dementia/Parkinson's disease: on Sinemet and Aricept. and Seroquel. 5. Thrombocytopenia: no active bleeding, will monitor. 6. DVT Prophylaxis: SCD/Teds. Discharge Planning continue current management encourage out of bed to chair 2-3 times daily. encourage use of IS Jessica Ngo MD Jun 28, 2017 13:56
[2017-06-28] MEDS: DONEPEZIL HCL 5 MG TAB PO SCH (21:18)
[2017-06-28] MEDS: AZITHROMYCIN INJ 500 MG in SODIUM CHLOR 0.9% 250 ML INJ 250 ML IV SCH (21:18)
[2017-06-28] MEDS: QUEtiapine FUMARATE 25 MG TAB PO SCH (21:18)
[2017-06-29] VITALS (8 sets, daily range): BP systolic 93–186; BP diastolic 51–93; PULSE 73–86; RESP 16–20; TEMP 97.1–98.3; O2SAT 90–96
[2017-06-29] MEDS ORDERED: LORazepam 2 MG/ML VIAL IV PUSH ONE (01:15)
[2017-06-29] MEDS: metroNIDAZOLE 500 MG INJ 100 ML IV SCH (01:16)
[2017-06-29] MEDS: MEMANTINE HCL 10 MG TAB PO SCH ×2 (08:00→22:04)
[2017-06-29] MEDS: CITALOPRAM HYDROBROMIDE 20 MG TAB PO SCH (08:00)
[2017-06-29] MEDS: CARBIDOPA/LEVODOPA 25 MG/100 MG TAB PO SCH ×4 (08:00→22:13)
[2017-06-29] MEDS: CARBIDOPA/LEVODOPA 10 MG/100 MG TAB PO SCH ×4 (08:00→22:13)
[2017-06-29] MEDS: NYSTATIN 100,000 UNIT/GM CREAM 15 GM TOPICAL SCH ×2 (09:00→22:05)
[2017-06-29] MEDS: DOCUSATE SODIUM 50 MG/SENNA 8.6 MG TAB PO SCH ×2 (09:00→21:00)
[2017-06-29] MEDS: LACTOBACILLUS ACIDOPHILUS TAB PO SCH ×2 (09:00→22:04)
[2017-06-29] MEDS: SODIUM CHLORIDE 0.9% FLUSH 10 ML FLUSH IV FLUSH SCH ×2 (09:00→22:13)
[2017-06-29] MEDS: cefTRIAXone INJ 1,000 MG in SODIUM CHLORIDE 0.9% INJ 100 ML IV SCH (09:00)
[2017-06-29] MEDS: guaiFENesin E.R. 600 MG TAB PO SCH ×2 (09:00→22:03)
[2017-06-29] MEDS: metroNIDAZOLE 500 MG TAB PO SCH ×2 (14:00→22:05)
--- NOTE | 2017-06-29 15:37 | HHI.PR ---
Subjective Remarks Pt more alert. son in law present states that pt ate more than half of his food. pt was somewhat somnolent early this morning Pt denies any CP/SOB/N/V Objective Vitals Vital Signs Date Time Temp Pulse Resp B/P (MAP) Pulse Ox O2 Delivery O2 Flow Rate FiO2 06/29/17 08:28 94 06/29/17 08:00 98.0 76 18 145/66 (92) 90 06/29/17 05:34 73 19 117/53 (74) 93 06/29/17 05:20 97.8 86 20 186/93 (124) 96 06/29/17 00:52 98.3 80 19 136/60 (85) 92 06/28/17 20:36 97 21 06/28/17 20:00 97.5 71 17 113/52 (72) 93 06/28/17 16:00 97.9 79 16 100/49 (66) 97 I/O 06/28/17 06/28/17 06/28/17 06/29/17 06/29/17 06/29/17 07:00 15:00 23:00 07:00 15:00 23:00 Intake Total 480 ml 420 ml 320 ml Balance 480 ml 420 ml 320 ml Intake Oral 480 ml 220 ml IV Total 200 ml Other 320 ml # Voids 2 3 1 # Bowel Movements 1 1 Result Diagram: 06/27/17 0740 06/27/17 0740 Imaging Last Impressions Chest X-Ray 06/28/17 0800 Signed Impressions: Service Date/Time: Wednesday, June 28, 2017 07:48 - CONCLUSION: Left lung consolidation is slightly improved. Mukul Houston MD Chest CT 06/24/17 0000 Signed Impressions: Service Date/Time: Saturday, June 24, 2017 15:26 - CONCLUSION: 1. Bilateral pulmonary infiltrates most pronounced within the left upper lobe. Most consistent with an infectious etiology. 2. Coronary artery atherosclerotic calcifications. 3. Tiny bilateral pleural effusions. 4. Bilateral renal calculi. Lloyd Chaudhary Jr., MD Head CT 06/21/17 0732 Signed Impressions: Service Date/Time: Wednesday, June 21, 2017 18:11 - CONCLUSION: No acute intracranial findings. Masoud Rodriguez MD Objective Remarks GENERAL: elderly male laying in bed quietly CARDIOVASCULAR: Regular rate and regular rhythm without murmurs RESPIRATORY:appears clear to auscultation. breath sounds are diminished. GASTROINTESTINAL: Abdomen soft, non-tender, nondistended. MUSCULOSKELETAL: Extremities without edema. NEURO: awake and alert but is very quiet, answers some of my questions by mumbling, resting tremors noted in right upper extremity A/P Problem List: (1) Encephalopathy ICD Code: G93.40 - Encephalopathy, unspecified Status: Acute (2) UTI (urinary tract infection) ICD Code: N39.0 - Urinary tract infection, site not specified Status: Acute (3) PNA (pneumonia) ICD Code: J18.9 - Pneumonia, unspecified organism Status: Acute (4) Recurrent falls ICD Code: R29.6 - Repeated falls Status: Acute (5) Dementia ICD Code: F03.90 - Unspecified dementia without behavioral disturbance Status: Acute (6) Thrombocytopenia ICD Code: D69.6 - Thrombocytopenia, unspecified Status: Acute (7) HTN (hypertension) ICD Code: I10 - Essential (primary) hypertension Status: Acute Assessment and Plan 1. Encephalopathy: likely secondary to underlying Dementia compounded by acute PNA. CT Head w/ no acute findings- continue antibiotics and will monitor. 2 pneumonia- suspect aspiration: Discussed w Dr. Silva. He has switched him to po abx. levaquin and flagyl. continue neb treatment bid. ST evaluated the pt and recommended regular diet w thin liquids 3. Recurrent Falls: Likely multifactorial-Dementia, Physical Deconditioning and acute infection. PT following, recommends d/c to rehab. 4. Dementia/Parkinson's disease: on Sinemet and Aricept. and Seroquel. 5. Thrombocytopenia: no active bleeding, will monitor. 6. DVT Prophylaxis: SCD/Teds. Discharge Planning continue current management encourage out of bed to chair 2-3 times daily. encourage use of IS anticipate d/c tomorrow. try to avoid sedatives overnight Jessica Ngo MD Jun 29, 2017 15:37
[2017-06-29] MEDS ORDERED: RESP: ALBUTEROL 2.5 MG/IPRATROPIUM 0.5 MG NEB (SCH) NEB (20:00)
[2017-06-29] MEDS: QUEtiapine FUMARATE 25 MG TAB PO SCH (22:04)
[2017-06-29] MEDS: DONEPEZIL HCL 5 MG TAB PO SCH (22:05)
[2017-06-30] VITALS: BP 138/62; PULSE 74; RESP 18; TEMP 96; O2SAT 93
[2017-06-30 04:00] VITALS: BP 132/64; PULSE 73; RESP 18; TEMP 96.2; O2SAT 94
[2017-06-30] MEDS: metroNIDAZOLE 500 MG TAB PO SCH ×2 (05:29→13:06)
[2017-06-30 08:00] VITALS: BP 102/56; PULSE 76; RESP 16; TEMP 98.2; O2SAT 95
[2017-06-30] MEDS: guaiFENesin E.R. 600 MG TAB PO SCH (08:58)
[2017-06-30] MEDS: MEMANTINE HCL 10 MG TAB PO SCH (08:58)
[2017-06-30] MEDS: DOCUSATE SODIUM 50 MG/SENNA 8.6 MG TAB PO SCH (08:58)
[2017-06-30] MEDS: LACTOBACILLUS ACIDOPHILUS TAB PO SCH (08:58)
[2017-06-30] MEDS: CITALOPRAM HYDROBROMIDE 20 MG TAB PO SCH (08:58)
[2017-06-30] MEDS: SODIUM CHLORIDE 0.9% FLUSH 10 ML FLUSH IV FLUSH SCH (08:59)
[2017-06-30] MEDS ORDERED: LEVOFLOXACIN 500 MG TAB PO SCH (09:00)
[2017-06-30] MEDS: NYSTATIN 100,000 UNIT/GM CREAM 15 GM TOPICAL SCH (09:00)
[2017-06-30] MEDS: CARBIDOPA/LEVODOPA 10 MG/100 MG TAB PO SCH ×3 (09:09→16:36)
[2017-06-30] MEDS: CARBIDOPA/LEVODOPA 25 MG/100 MG TAB PO SCH ×3 (09:09→16:35)
[2017-06-30 12:00] VITALS: BP 89/51; PULSE 89; RESP 16; TEMP 97.2; O2SAT 95
[2017-06-30] MEDS ORDERED: IPRASOL NEB (14:30)
[2017-06-30] MEDS ORDERED: LEVA500T20 PO (14:30)
[2017-06-30] MEDS ORDERED: METR-1 PO (14:30)
--- NOTE | 2017-06-30 14:41 | HHI.DS ---
Discharge Summary Admission Date Jun 21, 2017 at 19:36 Discharge Date: Jun 30, 2017 Admitting Diagnosis sepsis/pneumonia/UTI/altered mental status (1) Encephalopathy ICD Code: G93.40 - Encephalopathy, unspecified Status: Acute (2) UTI (urinary tract infection) ICD Code: N39.0 - Urinary tract infection, site not specified Status: Acute (3) PNA (pneumonia) ICD Code: J18.9 - Pneumonia, unspecified organism Status: Acute (4) Recurrent falls ICD Code: R29.6 - Repeated falls Status: Acute (5) Dementia ICD Code: F03.90 - Unspecified dementia without behavioral disturbance Status: Acute (6) Thrombocytopenia ICD Code: D69.6 - Thrombocytopenia, unspecified Status: Acute (7) HTN (hypertension) ICD Code: I10 - Essential (primary) hypertension Status: Acute Procedures none Brief History - From Admission This is a 77-year-old male with a PMH of Parkinson's Dementia was brought to the ER by family secondary to recurrent falls and worsening confusion x1-2 wks. Lives at home w/ who is unable to care for patient in his current condition. No reported fever, chills, nausea/vomiting or diarrhea. On arrival , BP 150/95, HR 78, O2 sat 98% on RA, Afebrile. CBC unremarkable except for platelets 146, previously 181 on 10/24/08. Chemistry essentially unremarkable. Lactic Acid normal. Troponin negative. Ammonia negative. INR 1.0. UA positive for UTI. CXR with moderate sized area of left mid to lower lung consolidation. CT Head with no acute findings. S/p Blood/Urine Culture in ER, Rocephin/Zithro. CBC/BMP: 06/27/17 0740 06/27/17 0740 Imaging Last Impressions Chest X-Ray 06/28/17 0800 Signed Impressions: Service Date/Time: Wednesday, June 28, 2017 07:48 - CONCLUSION: Left lung consolidation is slightly improved. Mukul Houston MD Chest CT 06/24/17 0000 Signed Impressions: Service Date/Time: Saturday, June 24, 2017 15:26 - CONCLUSION: 1. Bilateral pulmonary infiltrates most pronounced within the left upper lobe. Most consistent with an infectious etiology. 2. Coronary artery atherosclerotic calcifications. 3. Tiny bilateral pleural effusions. 4. Bilateral renal calculi. Lloyd Chaudhary Jr., MD Head CT 06/21/17 3402 Signed Impressions: Service Date/Time: Wednesday, June 21, 2017 18:11 - CONCLUSION: No acute intracranial findings. Masoud Rodriguez MD PE at Discharge GENERAL: elderly male laying in bed quietly CARDIOVASCULAR: Regular rate and regular rhythm without murmurs RESPIRATORY:appears clear to auscultation. breath sounds are diminished. GASTROINTESTINAL: Abdomen soft, non-tender, nondistended. MUSCULOSKELETAL: Extremities without edema. NEURO: awake and alert but is very quiet, answers some of my questions by mumbling, resting tremors noted in right upper extremity Pt update on day of discharge Pt much improved, up w PT and moving from recliner to bed w assistance. family at bedside. state pt is much more alert and interactive. ate most of his meals today and yesterday pt has no complaints. family comfortable w him going to rehab Hospital Course Encephalopathy/Aspiration PNA: encephalopathy likely secondary to underlying Dementia compounded by acute aspiration PNA. CT Head w/ no acute findings- s/p rocephin/azithro/flagyl. now switched to po levaquin and flagyl po and tolerating it well. Pulmonology has cleared him for discharged. script provided. pulm also recommending duonebs BID. ST evaluated the pt and recommended regular diet w thin liquids Recurrent Falls: Likely multifactorial-Dementia, Physical Deconditioning and acute infection. PT following, recommends d/c to rehab. Dementia/Parkinson's disease: on home meds Pt Condition on Discharge: Stable Discharge Disposition: Discharge to SNF Discharge Time: > 30 minutes Discharge Instructions DIET: Follow Instructions for: As Tolerated, No Restrictions Speech Therapy-Diet Recommends: Regular Activities you can perform: Regular-No Restrictions Follow up Referrals: PCP Follow-up - 1 Week Pulmonology - 1 Week with Adolph Silva MD New Medications: Ipratropium-Albuterol Neb (Duoneb) 0.5-2.5 Mg/3 Ml Neb 1 AMPULE NEB BID NEB for 30 Days, ML Levofloxacin (Levaquin) 500 Mg Tablet 500 MG PO DAILY for 4 Days start on 07/01/17 Metronidazole (Flagyl) 500 Mg Tab 500 MG PO Q8HR for 4 Days, TAB Continued Medications: Carbidopa-Levodopa (Carbidopa-Levodopa) 25-100 Mg Tab 1 TAB PO Q6HR for Parkinson Disease Mgmt, #90 TAB 0 Refills Carbidopa-Levodopa (Carbidopa-Levodopa) 10-100 Mg Tab 1 TAB PO Q6HR for Parkinson Disease Mgmt, #90 TAB 0 Refills Celecoxib (Celecoxib) 200 Mg Cap 200 MG PO DAILY for Pain Management, CAP 0 Refills Citalopram (Citalopram) 20 Mg Tab 20 MG PO DAILY for Control Depression, #30 TAB 0 Refills Donepezil (Donepezil) 10 Mg Tab 10 MG PO HS for Dementia, #30 TAB 0 Refills Memantine (Memantine) 10 Mg Tab 10 MG PO BID for Alzheimer's Dementia, TAB 0 Refills Jessica Ngo MD Jun 30, 2017 14:41
== END 2017-06-30 19:10 | DRG 177 ==
LOC: NEPC 17:20 → NEDA 19:36 → N05A 20:46
PROVIDERS: ADMIT Hospitalist; ATTEND Hospitalist
DX: J69.0 Pneumonitis due to inhalation of food and vomit (principal); G93.49 Other encephalopathy; D69.6 Thrombocytopenia, unspecified; G20 Parkinson's disease; N39.0 Urinary tract infection, site not specified; F02.80 Dementia in other diseases classified elsewhere, unspecified severity, without behavioral disturbance, psychotic disturbance, mood disturbance, and anxiety; R29.6 Repeated falls; I10 Essential (primary) hypertension; Z66 Do not resuscitate
CPT/HCPCS: 70450; 71010; 71250; 76937; 80048; 80053; 81001; 82140; 83605; 83735; 84443; 84484; 85025; 85610; 85730; 87040; 87086; 93005; 94150; 94640; 94664; 96374; J0456; J0696; J2060; J2920; J7030; J7050